=== PATIENT | female | born 1960 | race Caucasian/White ===

== ENCOUNTER → 2016-12-19 | Outpatient (REF) | payer BC | END | disposition home or self-care (01) | LOC: M LAB REF 10:58 | PROVIDERS: ATTEND Physician Assistant Medical | DX: J02.9 Acute pharyngitis, unspecified (principal) ==

== ENCOUNTER → 2017-04-22 | Outpatient (CLI) | payer BC ==
[2017-04-22 09:48] LABS: BASO % 0.5 % (0.0-1.0); EOS # 0.1 K/mm3 (0.0-0.50); EOS % 1.3 % (0.0-3.0); LARGE UNSTAINED CELL # 0.1 K/mm3 (0.0-0.4); LARGE UNSTAINED CELL % 1.4 % (0.0-4.0); LYMPH # 1.8 K/mm3 (1.5-4.5); LYMPH % 29.3 % (24.0-44.0); MEAN CORPUSCULAR HEMOGLOBIN 29.5 pg (27.0-33.0); MEAN CORPUSCULAR HGB CONC 32.4 g/dl (32.0-36.5); MEAN CORPUSCULAR VOLUME 90.9 fl (80.0-96.0); MONO # 0.3 K/mm3 (0.0-0.8); MONO % 4.8 % (0.0-5.0); NEUTROPHILS # 3.9 K/mm3 (1.8-7.7); NEUTROPHILS % 62.7 % (36.0-66.0); PLATELET COUNT, AUTOMATED 256 k/mm3 (150-450); RED CELL DISTRIBUTION WIDTH 12.9 % (11.5-14.5); WHITE BLOOD COUNT 6.2 K/mm3 (4.0-10.0)
[2017-04-22 10:33] LABS: ALBUMIN 4.2 GM/DL (3.2-5.2); ALKALINE PHOSPHATASE 95 U/L (45-117); ALT/SGPT 35 U/L (12-78); ANION GAP 7 MEQ/L (8-16); AST/SGOT 20 U/L (15-37); BILIRUBIN,TOTAL 0.3 MG/DL (0.2-1.0); BLOOD UREA NITROGEN 17 MG/DL (7-18); CALCIUM LEVEL 9.9 MG/DL (8.5-10.1); CARBON DIOXIDE LEVEL 29 MEQ/L (21-32); CHLORIDE LEVEL 107 MEQ/L (98-107); CHOLESTEROL LEVEL 252 MG/DL (<200); CREATININE FOR GFR 0.69 MG/DL (0.55-1.02); GLOMERULAR FILTRATION RATE > 60.0 (>51); GLUCOSE, FASTING 92 MG/DL (70-105); POTASSIUM SERUM 4.7 MEQ/L (3.5-5.1); SODIUM LEVEL 143 MEQ/L (136-145); TOTAL PROTEIN 7.2 GM/DL (6.4-8.2); TRIGLYCERIDES LEVEL 104 MG/DL (<150)
== END ==
LOC: M LAB 08:47
PROVIDERS: ATTEND Physician Assistant Medical
DX: E78.2 Mixed hyperlipidemia (principal); E66.09 Other obesity due to excess calories; G43.909 Migraine, unspecified, not intractable, without status migrainosus

== ENCOUNTER → 2017-10-01 | Outpatient (CLI) | payer BC ==
--- NOTE | 2017-10-01 16:13 | REPMRS ---
Patient History The patient states she had a clinical breast exam in 09/2017. Patient is postmenopausal and had first child at age 37. Family history of breast cancer in maternal aunt at age 50 or over and endometrial cancer in maternal cousin under age 50. Took hormonal contraceptives for 20 years. Digital Woman Screen Mammo: October 01, 2017 - Exam #: [id number] Bilateral CC and MLO view(s) were taken. Technologist: Giselle Fitch Technologist Prior study comparison: April 20, 2016, right breast digital mammo diagnostic unilateral, performed at [facility]. July 20, 2015, bilateral digital mammo screening bilat, performed at [facility]. FINDINGS: There are scattered fibroglandular densities. There is a fairly symmetric fibroglandular pattern in both breasts. There has been no interval development of masses, areas of architectural distortion or clusters of microcalcifications typical of malignancy. ASSESSMENT: BI-RADS/ACR category 2 mammogram. Benign finding(s). Recommendation Routine screening mammogram of both breasts in 1 year (for women over age 40). This mammogram was interpreted with the aid of an FDA-approved computer-aided dectection system. Electronically Signed By: Bhupinder Turner MD 10/01/17 2295
== END ==
LOC: M WHC 14:52
PROVIDERS: ATTEND Nurse Practitioner Family
DX: Z12.31 Encounter for screening mammogram for malignant neoplasm of breast (principal); Z78.0 Asymptomatic menopausal state; Z85.3 Personal history of malignant neoplasm of breast; Z79.899 Other long term (current) drug therapy; Z85.42 Personal history of malignant neoplasm of other parts of uterus

== ENCOUNTER → 2018-08-12 | Outpatient (REF) | payer BC | LOC: M LAB REF 12:29 | DX: N30.01 Acute cystitis with hematuria (principal) | CPT/HCPCS: 87088 ==

== ENCOUNTER → 2018-08-31 | Outpatient (REF) | payer BC | LOC: M LAB REF 10:39 | DX: N39.0 Urinary tract infection, site not specified (principal) | CPT/HCPCS: 87186 ==

== ENCOUNTER → 2018-10-02 | Outpatient (CLI) | payer BC | LOC: M WHC 15:04 | DX: Z12.31 Encounter for screening mammogram for malignant neoplasm of breast (principal); Z79.899 Other long term (current) drug therapy; Z85.3 Personal history of malignant neoplasm of breast | CPT/HCPCS: 77067 ==

== ENCOUNTER → 2019-04-21 | Outpatient (REF) | payer BC | LOC: M LAB REF 19:24 | PROVIDERS: ATTEND Physician Assistant Medical | DX: N39.0 Urinary tract infection, site not specified (principal) ==

== ENCOUNTER → 2019-05-26 | Outpatient (REF) | payer BC ==
[2019-05-26 19:01] LABS: APPEARANCE, URINE CLEAR (CLEAR); BACTERIA, URINE AUTO 2+ (NEGATIVE); BILIRUBIN, URINE AUTO NEGATIVE (NEGATIVE); BLOOD, URINE BLOOD NEGATIVE (NEGATIVE); COLOR, URINE STRAW (YELLOW); GLUCOSE, URINE (UA) AUTO NEGATIVE (NEGATIVE); KETONE, URINE AUTO NEGATIVE (NEGATIVE); LEUKOCYTE ESTERASE, URINE AUTO NEGATIVE (NEGATIVE); NITRITE, URINE AUTO NEGATIVE (NEGATIVE); PROTEIN, URINE AUTO NEGATIVE (NEGATIVE); RBC, URINE AUTO 0 /HPF (0-3); SPECIFIC GRAVITY URINE AUTO 1.003 (1.002-1.035); SQUAMOUS EPITHELIAL CELL UR AU 0 /HPF (0-6); UROBILINOGEN, URINE AUTO 0.2 mg/dL (0.0-2.0); WBC, URINE AUTO 0 /HPF (0-3)
== END ==
LOC: M SMT 17:37
PROVIDERS: ATTEND Nurse Practitioner Women's Health
DX: Z87.440 Personal history of urinary (tract) infections (principal)

== ENCOUNTER → 2019-05-28 | Outpatient (CLI) | payer BC ==
--- NOTE | 2019-05-29 00:28 | REP ---
Clinical: History of urinary tract infection. Technique: Real time jordan scale and color evaluation using curved array transducer. Findings: Right kidney is normal in reniform shape and measures 11.3 x 5.6 x 5.0 cm with mild hydronephrosis without nephrolithiasis, cystic or renal mass lesion. Left kidney is normal in reniform shape and measures 11.2 x 4.2 x 5.7 cm without hydronephrosis, nephrolithiasis, cystic or renal mass lesion. Bladder is normal in appearance without wall thickening or mass lesion. Bilateral ureteral jets are identified. Prevoid bladder equals 690 ml. Postvoid bladder measures 77 ml. Postvoid residual equals 11%. Impression: Mild persistent right hydronephrosis. Electronically Signed by Cornelius Murrieta MD 05/29/2019 12:19 A
== END ==
LOC: M RAD 11:16
PROVIDERS: ATTEND Nurse Practitioner Women's Health
DX: N13.30 Unspecified hydronephrosis (principal); Z87.440 Personal history of urinary (tract) infections

== ENCOUNTER → 2019-06-03 | Outpatient (CLI) | payer BC ==
[2019-06-03 12:54] LABS: BLOOD UREA NITROGEN 13 MG/DL (7-18); CALCIUM LEVEL 9.5 MG/DL (8.5-10.1); CARBON DIOXIDE LEVEL 28 MEQ/L (21-32); CHLORIDE LEVEL 108 MEQ/L (98-107); CREATININE FOR GFR 0.86 MG/DL (0.55-1.30); GLOMERULAR FILTRATION RATE > 60.0 (>51); GLUCOSE, FASTING 94 MG/DL (70-100); POTASSIUM SERUM 4.4 MEQ/L (3.5-5.1); SODIUM LEVEL 142 MEQ/L (136-145)
== END ==
LOC: M LAB 10:52
PROVIDERS: ATTEND Nurse Practitioner Women's Health
DX: N13.30 Unspecified hydronephrosis (principal)

== ENCOUNTER → 2019-06-08 | Outpatient (REF) | payer BC | LOC: M SMT 12:18 | PROVIDERS: ATTEND Nurse Practitioner Women's Health | DX: N39.0 Urinary tract infection, site not specified (principal) ==

== ENCOUNTER → 2019-08-11 | Outpatient (REF) | payer BC ==
[2019-08-11 17:41] LABS: APPEARANCE, URINE HAZY (CLEAR); BACTERIA, URINE AUTO 2+ (NEGATIVE); BILIRUBIN, URINE AUTO NEGATIVE (NEGATIVE); BLOOD, URINE BLOOD NEGATIVE (NEGATIVE); COLOR, URINE YELLOW (YELLOW); GLUCOSE, URINE (UA) AUTO NEGATIVE (NEGATIVE); KETONE, URINE AUTO NEGATIVE (NEGATIVE); LEUKOCYTE ESTERASE, URINE AUTO 2+ (NEGATIVE); MUCUS, URINE SMALL (NEGATIVE); NITRITE, URINE AUTO NEGATIVE (NEGATIVE); PROTEIN, URINE AUTO NEGATIVE (NEGATIVE); RBC, URINE AUTO 1 /HPF (0-3); SQUAMOUS EPITHELIAL CELL UR AU 10 /HPF (0-6); UROBILINOGEN, URINE AUTO 0.2 mg/dL (0.0-2.0); WBC, URINE AUTO 29 /HPF (0-3)
== END ==
LOC: M SMT 16:38
PROVIDERS: ATTEND Urology
DX: R30.0 Dysuria (principal)

== ENCOUNTER → 2019-10-01 | Outpatient (CLI) | payer BC ==
--- NOTE | 2019-10-01 17:01 | REPMRS ---
Patient History The patient states she had a clinical breast exam in 09/2019. Patient is postmenopausal and had first child at age 37. Family history of endometrial cancer under age 50 in maternal cousin, breast cancer at age 50 or over in maternal aunt. Took hormonal contraceptives for 20 years. Taking estrogen for 4 years. Digital Woman Screen Mammo: October 01, 2019 - Exam #: [id number] Bilateral CC and MLO view(s) were taken. Technologist: Carie Marshall, Technologist Prior study comparison: October 02, 2018, bilateral digital woman screen mammo performed at [facility]. October 01, 2017, digital woman screen mammo performed at [facility]. April 20, 2016, right breast digital mammo diagnostic unilateral, performed at [facility]. July 20, 2015, bilateral digital mammo screening bilat, performed at [facility]. FINDINGS: There are scattered fibroglandular densities. There has been no change in the appearance of the mammogram from the prior studies. There is a mild amount of scattered fibroglandular density which is fairly symmetric. There is no interval development of dominant mass, architectural distortion, or grouped microcalcification suggestive of malignancy. 3-D tomosynthesis shows no additional findings. Assessment: BI-RADS/ACR category 1 mammogram. Negative Mammogram. Recommendation Routine screening mammogram of both breasts in 1 year (for women over age 40). This patient's Lifetime Breast Cancer Risk is estimated at 15.1 %. This mammogram was interpreted with the aid of an FDA-approved computer-aided dectection system. Electronically Signed By: Elijah Murillo MD 10/01/19 [id number]
== END ==
LOC: M WHC 15:11
PROVIDERS: ATTEND Nurse Practitioner Family
DX: Z12.31 Encounter for screening mammogram for malignant neoplasm of breast (principal)

== ENCOUNTER → 2020-04-05 | Outpatient (REF) | payer BC ==
[2020-04-05 13:41] LABS: APPEARANCE, URINE HAZY (CLEAR); BACTERIA, URINE AUTO NEGATIVE (NEGATIVE); BILIRUBIN, URINE AUTO NEGATIVE (NEGATIVE); BLOOD, URINE BLOOD NEGATIVE (NEGATIVE); COLOR, URINE YELLOW (YELLOW); GLUCOSE, URINE (UA) AUTO NEGATIVE (NEGATIVE); KETONE, URINE AUTO NEGATIVE (NEGATIVE); LEUKOCYTE ESTERASE, URINE AUTO NEGATIVE (NEGATIVE); MUCUS, URINE SMALL (NEGATIVE); NITRITE, URINE AUTO NEGATIVE (NEGATIVE); PROTEIN, URINE AUTO NEGATIVE (NEGATIVE); RBC, URINE AUTO 0 /HPF (0-3); SPECIFIC GRAVITY URINE AUTO 1.013 (1.002-1.035); SQUAMOUS EPITHELIAL CELL UR AU 2 /HPF (0-6); UROBILINOGEN, URINE AUTO 0.2 mg/dL (0.0-2.0); WBC, URINE AUTO 1 /HPF (0-3)
== END ==
LOC: M SMT 13:12
PROVIDERS: ATTEND Urology
DX: N39.0 Urinary tract infection, site not specified (principal)

== ENCOUNTER → 2020-06-22 | Outpatient (CLI) | payer BC ==
[~2020-06-22] MED LIST: ECOT81TA5 PO; PERC5TAB12 PO
--- NOTE | 2020-08-09 10:01 | REP ---
MRI LEFT KNEE HISTORY: Pain. FINDINGS: There is a somewhat complex tear of the posterior horn of the medial meniscus. The lateral meniscus is intact. The cruciate and collateral ligaments are intact. The extensor mechanism is intact. There is moderate chondromalacia of the lateral patella facet with some minor subchondral marrow edema. There is moderately severe chondromalacia of the medial femoral condyle with moderate chondromalacia of the medial tibial plateau. There is subchondral marrow edema in the medial femoral condyle. There is a more focal cartilaginous defect along the weightbearing surface of the medial femoral condyle extending down to the bone, having a diameter of about 3 mm. There is mild subchondral marrow edema in the medial tibial plateau. There is mild diffuse chondromalacia of the lateral femoral condyle and tibial plateau. There is a moderate joint effusion with fluid extending inferiorly along the posterior tibiofibular articulation. IMPRESSION: Complex tear posterior horn medial meniscus. Moderate chondromalacia lateral patella facet. Moderately severe chondromalacia medial femoral condyle with a focal 3 mm cartilaginous defect extending down to the bone with moderate underlying subchondral marrow edema. There is also moderate chondromalacia of the medial tibial plateau with mild subchondral marrow edema. There is mild chondromalacia throughout the lateral joint compartment. There is a moderate joint effusion. MTDD
--- NOTE | 2020-08-09 10:02 | REP ---
MRI RIGHT KNEE HISTORY: Knee pain. TECHNIQUE: Multiple sequences obtained in the axial, coronal, and sagittal planes. FINDINGS: There is a complex tear of the posterior horn of the medial meniscus. The lateral meniscus appears intact. The cruciate and collateral ligaments are intact. The extensor mechanism is intact. There is mild chondromalacia of the patellar facet with mild subchondral marrow edema centrally. There is moderate diffuse chondromalacia of the medial femoral condyle and tibial plateau with mild subchondral marrow edema in the medial femoral condyle. There is mild marginal spurring. There is mild diffuse chondromalacia in the lateral joint compartment. There is some minimal subchondral marrow edema in the lateral tibial plateau. There is a small joint effusion. IMPRESSION: Complex tear posterior horn medial meniscus. Cruciate and collateral ligaments intact. Diffuse chondromalacia as discussed above, most significantly in the medial joint compartment along the medial femoral condyle and tibial plateau, with associated subchondral marrow edema in the medial femoral condyle. Small joint effusion. MTDD
== END ==
LOC: M RAD 16:00
PROVIDERS: ATTEND Physician Assistant
DX: M17.0 Bilateral primary osteoarthritis of knee (principal); M22.42 Chondromalacia patellae, left knee; S83.232A Complex tear of medial meniscus, current injury, left knee, initial encounter; M25.462 Effusion, left knee; S83.231A Complex tear of medial meniscus, current injury, right knee, initial encounter; M22.41 Chondromalacia patellae, right knee; X58.XXXA Exposure to other specified factors, initial encounter; Y92.9 Unspecified place or not applicable

== ENCOUNTER → 2020-08-09 | Outpatient (REF) | payer BC | LOC: M LAB REF 18:29 | PROVIDERS: ATTEND Dermatology | DX: D49.2 Neoplasm of unspecified behavior of bone, soft tissue, and skin (principal) ==

== ENCOUNTER → 2020-09-09 | Outpatient (CLI) | payer BC ==
[2020-09-09 07:59] LABS: BASO % 0.7 % (0.0-1.0); EOS # 0.1 10^3/uL (0.0-0.5); EOS % 1.9 % (0.0-3.0); HEMATOCRIT 44.4 % (36.0-47.0); HEMOGLOBIN 13.8 g/dl (12.0-15.5); LYMPH # 1.8 10^3/uL (1.5-5.0); LYMPH % 29.7 % (24.0-44.0); MEAN CORPUSCULAR HGB CONC 31.1 g/dl (32.0-36.5); MEAN CORPUSCULAR VOLUME 90.1 fl (80.0-96.0); MONO # 0.5 10^3/uL (0.0-0.8); MONO % 8.3 % (0.0-5.0); NEUTROPHILS # 3.5 10^3/uL (1.5-8.5); NEUTROPHILS % 59.2 % (36.0-66.0); PLATELET COUNT, AUTOMATED 243 10^3/uL (150-450); RED BLOOD COUNT 4.93 10^6/uL (4.00-5.40); WHITE BLOOD COUNT 5.9 10^3/uL (4.0-10.0)
[2020-09-09 08:23] LABS: ALBUMIN 3.8 GM/DL (3.2-5.2); ALT/SGPT 36 U/L (12-78); BILIRUBIN,TOTAL 0.4 MG/DL (0.2-1.0); BLOOD UREA NITROGEN 24 MG/DL (7-18); CALCIUM LEVEL 9.4 MG/DL (8.5-10.1); CARBON DIOXIDE LEVEL 27 MEQ/L (21-32); CHLORIDE LEVEL 109 MEQ/L (98-107); CHOLESTEROL LEVEL 230 MG/DL (<200); CHOLESTEROL RISK RATIO 3.593 (<5); GLOMERULAR FILTRATION RATE > 60.0 (>51); GLUCOSE, FASTING 106 MG/DL (70-100); HDL CHOLESTEROL 64 MG/DL (>40); LDL CHOLESTEROL 144 MG/DL (<100); NON-HDL-C 166 MG/DL; POTASSIUM SERUM 4.5 MEQ/L (3.5-5.1); SODIUM LEVEL 142 MEQ/L (136-145); TOTAL PROTEIN 6.7 GM/DL (6.4-8.2); TRIGLYCERIDES LEVEL 112 MG/DL (<150)
== END ==
LOC: M LAB 07:26
PROVIDERS: ATTEND Physician Assistant Medical
DX: E78.2 Mixed hyperlipidemia (principal); E66.09 Other obesity due to excess calories

== ENCOUNTER → 2020-09-13 | Outpatient (CLI) | payer BC | LOC: M PT 08:36 | PROVIDERS: ATTEND Orthopaedic Surgery | DX: Z01.818 Encounter for other preprocedural examination (principal); M17.12 Unilateral primary osteoarthritis, left knee ==

== ENCOUNTER → 2020-09-13 | Outpatient (CLI) | payer BC ==
[2020-09-13 08:32] LABS: HEMATOCRIT 44.4 % (36.0-47.0); HEMOGLOBIN 14.1 g/dl (12.0-15.5); MEAN CORPUSCULAR HEMOGLOBIN 28.7 pg (27.0-33.0); MEAN CORPUSCULAR HGB CONC 31.8 g/dl (32.0-36.5); MEAN CORPUSCULAR VOLUME 90.2 fl (80.0-96.0); PLATELET COUNT, AUTOMATED 264 10^3/uL (150-450); RED BLOOD COUNT 4.92 10^6/uL (4.00-5.40); WHITE BLOOD COUNT 5.1 10^3/uL (4.0-10.0)
[2020-09-13 08:43] LABS: INR 0.86; PROTHROMBIN TIME 11.9 SECONDS (12.5-14.3)
[2020-09-13 08:56] LABS: ALBUMIN 4.1 GM/DL (3.2-5.2); ALT/SGPT 33 U/L (12-78); BILIRUBIN,TOTAL 0.4 MG/DL (0.2-1.0); BLOOD UREA NITROGEN 14 MG/DL (7-18); CALCIUM LEVEL 10.1 MG/DL (8.5-10.1); CARBON DIOXIDE LEVEL 28 MEQ/L (21-32); CHLORIDE LEVEL 109 MEQ/L (98-107); CREATININE FOR GFR 0.76 MG/DL (0.55-1.30); GLOMERULAR FILTRATION RATE > 60.0 (>51); GLUCOSE, FASTING 105 MG/DL (70-100); POTASSIUM SERUM 4.6 MEQ/L (3.5-5.1); SODIUM LEVEL 142 MEQ/L (136-145)
[2020-09-13 09:18] LABS: ERYTHROCYTE SEDIMENTATION RATE 6 mm/hr (0-30)
--- NOTE | 2020-09-14 03:36 | REP ---
INDICATION: LEFT KNEE ARTHRITIS COMPARISON: None. TECHNIQUE: PA and lateral. FINDINGS: The mediastinum and cardiac silhouette are normal. The lung acevedo are clear and without acute consolidation, effusion, or pneumothorax. The skeletal structures are intact and normal. IMPRESSION: No acute cardiopulmonary process. <Electronically signed by Cornelius Murrieta > 09/14/20 [id number]
--- NOTE | 2020-09-15 12:31 | ECGEPIP ---
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 No prior ECG available for comparison at the time of interpretation. Electronically Signed on 09-15-2020 12:31:32 EDT by Jamie Tolbert
== END ==
LOC: M LAB 08:01
PROVIDERS: ATTEND Physician Assistant Surgical
DX: Z01.818 Encounter for other preprocedural examination (principal); M17.12 Unilateral primary osteoarthritis, left knee

== ENCOUNTER → 2020-09-16 | Outpatient (REF) | payer BC ==
[2020-09-16 18:18] LABS: HEMOGLOBIN A1c 5.7 %
== END ==
LOC: M SFHCADAM 11:27
PROVIDERS: ATTEND Physician Assistant Medical
DX: R73.01 Impaired fasting glucose (principal)

== ENCOUNTER → 2020-09-21 | Outpatient (CLI) | payer BC | LOC: M LABSMTC 12:15 | PROVIDERS: ATTEND Anesthesiology | DX: Z01.818 Encounter for other preprocedural examination (principal) | CPT/HCPCS: C9803; U0003 ==

== ENCOUNTER 2020-09-26 07:12 | Inpatient (IN) | payer BC ==
--- NOTE | 2020-09-23 06:56 | HPE ---
DATE OF ANTICIPATED ADMISSION: 09/26/2020 ATTENDING PHYSICIAN: Dr. Hutton. CHIEF COMPLAINT: Left knee pain and stiffness. HISTORY OF PRESENT ILLNESS: The patient is a pleasant 60-year-old female with progressively worsening left knee pain and stiffness. She failed to improve with conservative measures. She continues to have symptoms with weightbearing activities and activities of daily living. She consented for an elective left knee total knee arthroplasty with Dr. Hutton for her continued symptoms. Medical optimization pending with ESTELA Pitt. CURRENT MEDICATIONS: - Aleve 220 mg twice daily as needed. - daily multivitamin. - Sweta 180 mg daily. CHRONIC MEDICAL CONDITIONS: 1. Seasonal allergies. 2. Restless legs. ALLERGIES: ERYTHROMYCIN, CECLOR, AMOXICILLIN. PAST SURGICAL HISTORY: 1. Bilateral knee arthroscopies. 2. Left foot surgery. 3. sections. SOCIAL HISTORY: Patient denies tobacco and occasionally consumes alcohol. REVIEW OF SYSTEMS: Patient denies fevers, chills, nausea, vomiting, or diarrhea. She denies chest pain, shortness of breath, lightheadedness, dizziness, or headaches. She denies any recent upper respiratory or urinary tract infection symptoms. The patient does continue to have left knee pain with weightbearing activities and activities of daily living. PHYSICAL EXAMINATION: GENERAL: Well-nourished and well-developed female, in no apparent distress. She is alert, oriented, and cooperative. Her mood and affect are appropriate. VITAL SIGNS: Height 64 inches, weight 198 pounds, temperature 97.1, blood pressure 140/70, heart rate 80, respirations 20. NECK: Supple without lymphadenopathy. HEART: Regular rate and rhythm. LUNGS: Clear to auscultation bilaterally. Breathing is regular and nonlabored. ABDOMEN: Soft and nontender. Bowel sounds are present. MUSCULOSKELETAL: Left knee exhibits no gross abnormalities. There is tenderness along the medial joint line. The patient can extend the knee to about 5 degrees and flex to 100 degrees. Left lower extremity strength is 5/5. No hip irritability elicited with range of motion testing. Calf is soft and nontender without evidence of DVT. She is neurovascularly intact distally. Patient is walking with a slight limp favoring the left lower extremity. She is not using any assistive devices for ambulation. IMAGING: Chest x-ray with no acute cardiopulmonary process. Left knee x-ray notable for end-stage degenerative changes. EKG sinus rhythm with sinus arrhythmia. Nonspecific ST-T wave abnormalities. LABORATORY DATA: Comprehensive metabolic profile with fasting glucose elevated at 105, BUN 14, creatinine 0.76, GFR greater than 60, sodium 142, potassium 4.6, chloride elevated at 109, carbon dioxide 28. Anion gap decreased at 5. Calcium 10.1, AST 19, ALT 33, alkaline phosphatase elevated at 121. Total bilirubin 0.4, total protein 7.0, albumin 4.1, albumin globulin ratio 1.4. Prothrombin time 11.9. INR 0.86. Complete blood count ESR 6, WBCs 5.1, RBCs 4.92, hemoglobin 14.1, hematocrit 44.4, platelets 264,000. IMPRESSION: Left knee degenerative arthritis with x-rays notable for end-stage degenerative changes. PLAN: The patient has consented for an elective left total knee arthroplasty with Dr. Hutton for her continued symptoms. The patient will use her Bactroban and Hibiclens as directed. She will call [facility] tomorrow afternoon for a report time for her surgery on Saturday. She will be n.p.o. after midnight the night prior to surgery. She will follow her primary care recommendations on how to take her daily medications. ROSHNI
[~2020-09-26] VITALS: Ht 162.6 cm; Wt 89.4 kg
[~2020-09-26 07:12] MED LIST changes: -ECOT81TA5 PO; +LR 1,000 ML IV ONE; -PERC5TAB12 PO; +VANCOMYCIN HCL 1,000 MG, VIAL MATE ADAPTER 1 EACH in D5W 250 ML IV ONE
[2020-09-26] MEDS ORDERED: VANCOMYCIN 1000MG/20ML VIAL As Ordered ONE (07:34)
[2020-09-26] MEDS ORDERED: fentaNYL 100 MCG/2 ML INJECTION (J3010) As Ordered ONE ×3 (08:06→11:53)
[2020-09-26] MEDS ORDERED: propofoL 500 MG/50 ML VIAL As Ordered ONE (08:07)
[2020-09-26] MEDS ORDERED: propofoL 200 MG/20 ML VIAL As Ordered ONE ×2 (08:07→11:01)
[2020-09-26] MEDS ORDERED: LIDOCAINE 2% 100MG/5ML SDV (FOR ANES.) As Ordered ONE (08:07)
[2020-09-26] MEDS ORDERED: MIDAZOLAM INJ 2MG/2ML VIAL (J2250 PER 1MG) As Ordered ONE (08:30)
[2020-09-26] MEDS ORDERED: ceFAZolin 1GM VIAL (J0690 PER 500MG) As Ordered ONE (09:25)
[2020-09-26] MEDS ORDERED: BUPIVACAINE HCL 0.25% 10ML VIAL As Ordered ONE (09:26)
[2020-09-26] MEDS ORDERED: BUPIVACAINE LIPOSOME/PF 1.3% 20ML VIAL (13.3MG/ML)(EXPAREL)(C9290 PER1MG) As Ordered ONE (09:26)
[2020-09-26] MEDS ORDERED: EPINEPHrine INJ 1 MG/ML 1ML AMP As Ordered ONE (09:27)
[2020-09-26] MEDS ORDERED: TRANEXAMIC ACID 100 MG/ML 10ML VIAL As Ordered ONE (09:27)
[2020-09-26] MEDS ORDERED: fentaNYL 100 MCG/2 ML INJECTION (J3010) IV ONE (09:30)
[2020-09-26] MEDS ORDERED: MIDAZOLAM INJ 2MG/2ML VIAL (J2250 PER 1MG) IV ONE (09:30)
[2020-09-26] MEDS ORDERED: CLINDAMYCIN INJ 900MG/6ML VIAL As Ordered ONE (09:50)
[2020-09-26] MEDS ORDERED: ePHEDrine SULFATE 25 MG/5 ML(5MG/ML) SYRINGE As Ordered ONE (10:23)
[2020-09-26] MEDS ORDERED: PHENYLephrine HCL 500 MCG/5 ML (100MCG/ML) SYRINGE (J2370) As Ordered ONE (10:23)
[2020-09-26] MEDS ORDERED: oxyCODONE 5MG TAB As Ordered ONE (11:49)
[2020-09-26] MEDS: fentaNYL 100 MCG/2 ML INJECTION (J3010) IV PRN ×3 (11:55→12:05)
--- NOTE | 2020-09-26 12:11 | REP ---
INDICATION: POST OP IN PACU - PT IN PACU. COMPARISON: MRI 06/22/2020 TECHNIQUE: Two views FINDINGS: Anterior skin daljit are noted with evidence for a left total knee arthroplasty with all 3 components well aligned in relationship to each other and the solomon bone. There is some air and fluid in the knee joint and some subcutaneous air as well. IMPRESSION: Status post left total knee arthroplasty with normal orientation alignment of the 3 components in relationship to the solomon bone and each other. Immediate postoperative changes as described above. <Electronically signed by Fortino Bess > 09/26/20 [id number]
[2020-09-26] MEDS ORDERED: ONDANSETRON 4MG/2ML VIAL IV PRN ×2 (12:15→14:00)
[2020-09-26] MEDS ORDERED: oxyCODONE 5MG TAB PO PRN (12:15)
[2020-09-26] MEDS ORDERED: LR 1,000 ML IV SCH ×2 (12:15→14:00)
[2020-09-26] MEDS ORDERED: MORPHINE 2 MG/ML 1ML VIAL (J2270) IV PRN ×2 (12:15→14:00)
[2020-09-26] MEDS ORDERED: METOCLOPRAMIDE INJ 10MG/2ML VIAL (J2765 PER 1) IV PRN (12:15)
[2020-09-26 12:45] VITALS: BP 158/88
[2020-09-26 13:15] VITALS: BP 154/89
[2020-09-26] MEDS ORDERED: ACETAMINOPHEN TAB 650MG DOSE (2X325MG) PO PRN (14:00)
[2020-09-26] MEDS ORDERED: MORPHINE 4 MG/ML 1ML VIAL/SYRINGE (J2270) IV PRN (14:00)
[2020-09-26] MEDS: PERCOCET 5MG/325MG TAB PO PRN ×2 (14:14→20:47)
[2020-09-26 14:15] VITALS: BP 150/89
[2020-09-26] MEDS ORDERED: dexameTHASONE 10MG/1ML VIAL PRES.FREE (J1100 PER 1MG) ONE (15:18)
[2020-09-26] MEDS ORDERED: EPINEPHrine INJ 1 MG/ML 1ML AMP ONE (15:18)
[2020-09-26] MEDS ORDERED: ROPIvacaine 0.5% 30ML INJECTION (J2795 PER 1MG) ONE (15:18)
[2020-09-26 16:15] VITALS: BP 169/105
[2020-09-26 17:15] VITALS: BP 156/82
[2020-09-26] MEDS: ASPIRIN 81 MG ENTERIC TAB PO SCH (20:46)
[2020-09-26] MEDS: VANCOMYCIN HCL 1,000 MG, VIAL MATE ADAPTER 1 EACH in D5W 250 ML IV SCH (20:47)
[2020-09-26 22:00] VITALS: BP 153/79
[2020-09-27] MEDS ORDERED: diphenhydrAMINE 25MG CAP PO ONE (00:30)
[2020-09-27] MEDS: PERCOCET 5MG/325MG TAB PO PRN ×2 (02:57→09:53)
[2020-09-27 06:42] VITALS: BP 117/68
[2020-09-27] MEDS ORDERED: PERC5TAB12 PO (06:53)
[2020-09-27] MEDS ORDERED: ECOT81TA5 PO ×2 (06:53→06:59)
--- NOTE | 2020-09-27 07:10 | RO ---
DATE OF OPERATION: 09/26/2020 PREOPERATIVE DIAGNOSIS: Left knee degenerative arthritis. POSTOPERATIVE DIAGNOSIS: Left knee degenerative arthritis. PROCEDURE: Left total knee arthroplasty using a size 5 cruciate retaining ATTUNE femoral component with a size 4 tibial tray and a 6 mm rotating platform polyethylene insert, 32 mm polyethylene button, all the components were cemented. SURGEON: Chirag Hutton MD CANDLE POURER: Soledad Mason ANESTHESIA: Spinal, left femoral nerve block. COMPLICATIONS: None. SPECIMEN: Joint surface. OPERATIVE PROCEDURE: Antibiotics were given intravenously preoperatively. Successful left femoral nerve harish and then spinal anesthetic was induced. Tourniquet placed to the left upper thigh, not inflated. The left lower extremity was carefully prepped and draped in the usual sterile fashion. The leg was elevated. After appropriate time-out, the tourniquet was inflated to 250 mmHg for 54 minutes. A longitudinal incision was made for a median parapatellar approach to the knee. Bovie cautery was used to coagulate crossing vessels down to the knee joint capsule which was divided along the skin incision. We subperiosteally dissected the proximal, medial and lateral plateaus and then everted the patella and flexed the knee. ACL was dbrided and then the drill was placed on the center of the femoral canal, followed intramedullary victorino and the distal femoral cutting jig, set at 9 mm resection level at 5 degree valgus, a left knee block was pinned into position. Distal femoral cut performed. AP size and jig measured for a size 5 prosthesis, 3 degrees of external rotation dialed in. The pins placed and the four-in-one block applied. Anterior/posterior chamfer cuts were then performed taking great care to protect the surrounding soft tissues. Sulcus osteotomy was then performed by placing the jig first and then doing the osteotomy. I then exposed the proximal tibia and used an extra medullary victorino for the proximal tibial cut estimating being parallel to the mechanical axis of the tibia, referencing off the medial tibial condyle at 4 mm resection level. The block was pinned into position and secondary check with the extramedullary victorino confirmed we appeared to be parallel to the mechanical axis. A proximal tibial osteotomy was thus performed. The lamina bell hole digger was then laterally and we performed a completion medial meniscectomy. Debridement of posteromedial osteophytes and placed then placed the lamina bell hole digger medially and performed a completion meniscectomy and debridement of posterolateral osteophytes. The spacer block was placed; however, it was quite snug both in flexion and extension symmetrically with the 6 mm spacer. Thus I felt that we were more proximal to that needed to be removed, thus I placed the block and took an additional 4 mm. At this point, the flexion and extension trial block placed at 6 mm depth and she had excellent stability, symmetrically with the varus/valgus stress test in both flexion and extension. I then exposed the proximal tibia, size 4 tibial tray, which was then pinned in position followed by a reamer and a broach. The trial polyethylene was placed. The trial femoral component fit anatomically. We brought the knee into extension, everted the patella and performed a patellar osteotomy size for a 32 sized patellar component. Level was drilled. Trial placed. The patellofemoral tracking was anatomic. We drilled the lug holes for the femoral component and then removed all the trials and then placed Exparel on the subperiosteal tissues around the distal femur and the proximal tibia. As I was doing this, Soledad Mason, my intellectual property legal assistant, mixed the cement on the back table, as I prepared the bony surfaces for cementing with a copious amount of pulsatile lavage irrigant solution. Ms. Mason was also critically to the success with this difficult procedure by helping with appropriate soft tissue retraction, help to flex and extend the knee, help to prepare the patient, help to close the wound, help to mix the cement amongst many other tasks to allow me to perform the operation smoothly, efficiently and safely. Once all the bony surfaces were thoroughly dry, we cemented the tibial tray, removed excess cement, placed the polyethylene and then cemented the femoral component, removed excess cement, brought the knee into extension and then cemented the patellar button and removed excess cement and held it with a clamp with the knee in full extension until the cement hardened. As we were awaiting the cement to harden, we copiously pulsatile lavage irrigated out the knee joint. We did check the femoral canal and there was some cement protruding, which I removed. The tranexamic acid was then placed into the wound and then we began closing the apex of the arthrotomy with two #1 PDS sutures, the medial parapatellar area was closed with #1 PDS suture, then a #1 running STRATAFIX suture was used to close the capsule, double armed. The tourniquet was then released at this point. We copiously irrigated again, closed the deep subdermal tissues with interrupted 2-0 PDS sutures and the skin was closed with daljit, covered by an Optifoam and dry sterile bulky dressing. She was then transferred to the recovery room in stable condition. There were no intraoperative complications. ROSHNI
[2020-09-27 07:35] LABS: HEMATOCRIT 37.6 % (36.0-47.0); HEMOGLOBIN 11.8 g/dl (12.0-15.5); MEAN CORPUSCULAR HEMOGLOBIN 27.9 pg (27.0-33.0); MEAN CORPUSCULAR HGB CONC 31.4 g/dl (32.0-36.5); MEAN CORPUSCULAR VOLUME 88.9 fl (80.0-96.0); PLATELET COUNT, AUTOMATED 271 10^3/uL (150-450); RED BLOOD COUNT 4.23 10^6/uL (4.00-5.40); WHITE BLOOD COUNT 8.6 10^3/uL (4.0-10.0)
[2020-09-27 08:08] LABS: ALBUMIN 3.4 GM/DL (3.2-5.2); ALT/SGPT 31 U/L (12-78); BILIRUBIN,TOTAL 0.3 MG/DL (0.2-1.0); BLOOD UREA NITROGEN 10 MG/DL (7-18); CALCIUM LEVEL 9.2 MG/DL (8.5-10.1); CARBON DIOXIDE LEVEL 26 MEQ/L (21-32); CHLORIDE LEVEL 109 MEQ/L (98-107); CREATININE FOR GFR 0.59 MG/DL (0.55-1.30); GLOMERULAR FILTRATION RATE > 60.0 (>51); GLUCOSE, FASTING 128 MG/DL (70-100); POTASSIUM SERUM 3.9 MEQ/L (3.5-5.1); SODIUM LEVEL 140 MEQ/L (136-145); TOTAL PROTEIN 6.4 GM/DL (6.4-8.2)
[2020-09-27] MEDS ORDERED: MIRALAX *UNIT DOSE* 17GM PACKET PO SCH (09:00)
[2020-09-27] MEDS ORDERED: MOM 30ML SUSPENSION UDC PO SCH (09:00)
[2020-09-27] MEDS ORDERED: diphenhydrAMINE 50MG/ML VIAL (J1200) IV ONE (09:30)
[2020-09-27] MEDS: VANCOMYCIN HCL 1,000 MG, VIAL MATE ADAPTER 1 EACH in D5W 250 ML IV SCH (09:39)
[2020-09-27] MEDS: ASPIRIN 81 MG ENTERIC TAB PO SCH (09:39)
[2020-09-27 10:00] VITALS: BP 152/79
--- NOTE | 2020-09-27 10:26 | HPEPDOC ---
General Date of Admission Sep 26, 2020 at 07:12 Date of Service: Sep 26, 2020 Chief Complaint The patient is a 60-year-old female admitted with a reason for visit of Arthritis Left Knee. History of Present Illness Consultation Report: Consultation requested by Dr Chirag Saldivar HPI: The patient is [id number] female with no PMH of OA, RLS, Seasonal allergies was admitted for elective left total knee replacement for progressively worsening left knee pain and stiffness which failed to improve with conservative measures. At present she complains of sharp aching pain 4/10 at the surgical site of left knee. Says the numbness is wearing of. Denies any nausea or vomiting, Denies any chest pain or sob. Home Medications Scheduled Aspirin (Ecotrin) 81 Mg Tablet.dr, 1 TAB PO BID for pain Scheduled PRN Oxycodone HCl/Acetaminophen (Percocet 5-325 mg Tablet) 1 Each Tablet, 1-2 TAB PO Q4H PRN for PAIN Allergies Coded Allergies: amoxicillin (Verified Allergy, Intermediate, hives, 09/20/20) cefaclor (Verified Allergy, Intermediate, hives, 09/20/20) clavulanic acid (Verified Allergy, Intermediate, hives, 09/20/20) erythromycin base (Verified Allergy, Intermediate, hives, 09/20/20) hydrocodone (Verified Adverse Reaction, Mild, nausea, 09/20/20) Past Medical History Medical History Seasonal allergies. Restless legs. CERVICALGIA ENDOMETRIOSIS OBESITY MIGRAINE HEADACHE HYPERLIPIDEMIA CYSTO 06/22/2019 Surgical History Bilateral knee arthroscopies. Meniscal repair on right Left foot surgery. sections. L FOOT, BUNIONECTOMY 2009 LAPAROSCOPIES X 3, ENDOMETRIOSIS Family History FATHER: 66 YRS, CAD S/P SC, DM2, HTN MOTHER: ALIVE 78 YRS, ARTHRITIS, DJD SIBLINGS: SISTER - MULITPLE CVA, UNKNOWN CAUSE SISTER - HTN, ALCHOLISM, DEPRESSION, SUICIDE ATTEMPT(2017) AT 53, HYPOXIA RELATED ISSUES BROTHER -(D) 56 SUICIDE, ALCOHOLISM, DM2, HTN PATERNAL GRAND FATHER: THYROID CANCER PATERNAL GRAND MOTHER: HTN,SC STROKE MATERNAL AUNT: , MATERNAL AUNT AT AGE 60'S WITH BREAST CANCER IN BOTH BREASTS WITH DBL MASTECTOMIES Social History * Smoker: non-smoker A-FIB/CHADSVASC A-FIB History Current/History of A-Fib/PAF?: No Review of Systems Constitutional: Denies: Chills, Fever, Night Sweats Eyes: Denies: Pain, Vision change ENT: Denies: Head Aches, Ear Pain, Dysphagia Skin: Denies: Rash, Lesions, Breakdown Pulmonary: Denies: Dyspnea, Cough Cardiovascular: Denies: Chest Pain, Palpitations, Orthopnea, Paroxysmal Noc. Dyspnea, Lt Headedness Gastrointestinal: Denies: Nausea, Vomiting, Abdominal Pain, Diarrhea Genitourinary: Denies: Dysuria, Frequency, Incontinence, Retention Musculoskeletal: Reports: Joint Pain, Spasms; Denies: Neck Pain, Back Pain, Muscle Pain Neurological: Denies: Weakness, Numbness, Change in speech, Confusion Physical Examination General Exam: Positive: Alert, Cooperative, No Acute Distress Eye Exam: Positive: PERRLA, Conjunctiva & lids normal, EOMI; Negative: Sclera icteric ENT Exam: Positive: Atraumatic, Mucous membr. moist/pink, Pharynx Normal Neck Exam: Positive: Supple; Negative: JVD, thyromegaly Chest Exam: Positive: Clear to auscultation, Normal air movement Heart Exam: Positive: Rate Normal, Regular Rhythm, Normal S1, Normal S2; Negative: Murmurs, Rubs Abdomen Exam: Positive: Normal bowel sounds, Soft; Negative: Tenderness, Hepatospenomegaly Extremity Exam: Positive: Normal pulses; Negative: Clubbing, Cyanosis, Edema Skin Exam: Positive: Nl turgor and temperature; Negative: Breakdown, Lesion Vital Signs Vital Signs Date Time Temp Pulse Resp B/P (MAP) Pulse Ox O2 Delivery O2 Flow Rate FiO2 09/26/20 12:45 97.4 70 16 158/88 (111) 94 Room Air 09/26/20 12:05 2.0 Assessment/Plan The patient is [id number] female with no PMH of OA, RLS, obesity, migraine, Seasonal allergies was admitted for elective left total knee replacement for progressively worsening left knee pain and stiffness which failed to improve with conservative measures. left total knee athroplasty s/p Left TKR pain control and DVT prophylaxis as epr ortho RLS not on any meds. Allergies Cetrizine prn. Plan / VTE VTE Prophylaxis Ordered?: Yes EDWARD GILLIAM MD Sep 26, 2020 13:43
--- NOTE | 2020-09-29 14:13 | DS ---
DATE OF ADMISSION: 09/26/2020 DATE OF DISCHARGE: 09/27/2020 ATTENDING: Dr. Chirag Hutton ADMITTING DIAGNOSIS: Osteoarthritis, left knee. OTHER DIAGNOSES: 1. Seasonal allergies. 2. Restless leg syndrome. DISCHARGE DIAGNOSIS: Osteoarthritis, left knee, status post left total knee arthroplasty. OPERATION PERFORMED: Left total knee arthroplasty. HISTORY: A 60-year-old female patient with progressively worsening left knee pain and stiffness. She failed to improve with conservative management. She was admitted for elective knee replacement on the left side. HOSPITAL COURSE: Patient was admitted on the day of surgery and underwent a left total knee arthroplasty, which was uneventful. She did well in the postoperative period, and her hospital course was without complications. She will use thromboembolic deterrent (LUCIANO) stockings and aspirin 81 mg twice a day per the protocol for deep venous thrombosis (DVT) prophylaxis. She will resume her preoperative medications and diet. She was given instructions to include, but not limited to, wound monitoring and activity limitations. She will followup in our office in 10-14 days for a surgical followup. Please refer to the medical record for further details. [facility]la [facility]
== END 2020-09-27 15:15 | disposition home or self-care (01) | DRG 302 ==
LOC: M OR 07:12 → M MS5PR 12:30
PROVIDERS: ADMIT Orthopaedic Surgery; ATTEND Orthopaedic Surgery
PROC: 0SRD0J9 Replacement of Left Knee Joint with Synthetic Substitute, Cemented, Open Approach (ICD-10-PCS; principal; 2020-09-26 09:45)
DX: M17.12 Unilateral primary osteoarthritis, left knee (principal); G25.81 Restless legs syndrome; J30.2 Other seasonal allergic rhinitis; M23.221 Derangement of posterior horn of medial meniscus due to old tear or injury, right knee; M23.222 Derangement of posterior horn of medial meniscus due to old tear or injury, left knee; Z79.899 Other long term (current) drug therapy; Z88.0 Allergy status to penicillin; Z88.1 Allergy status to other antibiotic agents; Z88.8 Allergy status to other drugs, medicaments and biological substances

== ENCOUNTER → 2020-10-17 | Outpatient (RCR) | payer BC ==
[~2020-10-17] MED LIST changes: +ECOT81TA5 PO; -LR 1,000 ML IV ONE; +PERC5TAB12 PO; -VANCOMYCIN HCL 1,000 MG, VIAL MATE ADAPTER 1 EACH in D5W 250 ML IV ONE
== END ==
LOC: M PT 10-03 09:14
PROVIDERS: ATTEND Orthopaedic Surgery
DX: M17.12 Unilateral primary osteoarthritis, left knee (principal)

== ENCOUNTER → 2020-11-17 | Outpatient (RCR) | payer BC | LOC: M PT 10-20 09:48 | PROVIDERS: ATTEND Orthopaedic Surgery | DX: Z51.89 Encounter for other specified aftercare (principal); M17.12 Unilateral primary osteoarthritis, left knee ==

== ENCOUNTER 2020-12-02 12:58 | Outpatient (RCR) | payer BC | END 2020-12-18 | LOC: M PT 12:58 | PROVIDERS: ATTEND Orthopaedic Surgery | DX: Z47.89 Encounter for other orthopedic aftercare (principal); Z96.652 Presence of left artificial knee joint ==

== ENCOUNTER → 2020-12-02 | Outpatient (CLI) | payer BC ==
--- NOTE | 2020-12-02 12:05 | REPMRS ---
Patient History The patient states she had a clinical breast exam in November 2020. Patient is postmenopausal and had first child at age 37. Family history of endometrial cancer under age 50 in maternal cousin, breast cancer at age 50 or over in maternal aunt. Took hormonal contraceptives for 20 years. Took estrogen for 4 years. 3D TOMOSYNTHESIS WAS PERFORMED. The [facility] lifetime risk for breast cancer is 14.7%. Volpara breast density b. Digital Woman Screen Mammo: December 02, 2020 - Exam #: [id number] Bilateral CC and MLO view(s) were taken. Technologist: Leslie Farias, Technologist Prior study comparison: October 01, 2019, bilateral digital woman screen mammo performed at [facility]. October 02, 2018, bilateral digital woman screen mammo performed at [facility]. FINDINGS: There are scattered fibroglandular densities. There has been no change in the appearance of the mammogram from the prior studies. There is a mild amount of residual fibroglandular tissue which is fairly symmetric. There is no interval development of dominant mass, architectural distortion, or clustered microcalcification suggestive of malignancy. Assessment: BI-RADS/ACR category 1 mammogram. Negative Mammogram. Recommendation Routine screening mammogram in 1 year (for women over age 40). This mammogram was interpreted with the aid of an FDA-approved computer-aided dectection system. Electronically Signed By: Bhupinder Turner MD 12/02/20 [id number]
== END ==
LOC: M WHC 10:12
PROVIDERS: ATTEND Nurse Practitioner Family
DX: Z12.31 Encounter for screening mammogram for malignant neoplasm of breast (principal); Z92.0 Personal history of contraception

== ENCOUNTER → 2021-02-22 | Outpatient (REF) | LOC: M LABSMTC 11:34 | PROVIDERS: ATTEND Pediatrics | DX: Z11.52 Encounter for screening for COVID-19 (principal) ==

== ENCOUNTER 2021-05-19 14:03 | Emergency (ER) | payer BC ==
[~2021-05-19] VITALS: Ht 162.6 cm; Wt 90.9 kg
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
[2021-05-19] MEDS ORDERED: methocarbamoL 500 MG TAB PO ONE (15:15)
[2021-05-19] MEDS ORDERED: KETOROLAC 60MG 2ML VIAL IM ONE (15:15)
--- NOTE | 2021-05-19 15:45 | REP ---
INDICATION: pain COMPARISON: 09/26/2020 TECHNIQUE: AP, lateral, bilateral oblique and sunrise views. FINDINGS: Left knee replacement in stable satisfactory position. Associated postsurgical degenerative changes to the patella noted. No acute fracture or dislocation. No effusion. IMPRESSION: Relatively normal examination. No evidence for acute process. <Electronically signed by Cornelius Murrieta > 05/19/21 [id number]
[2021-05-19] MEDS ORDERED: METH-1164 PO (16:23)
[2021-05-19] MEDS ORDERED: KETO10TAB PO (16:23)
[2021-05-19 16:31] VITALS: BP 142/67
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
== END 2021-05-19 16:42 | disposition home or self-care (01) ==
LOC: M ED 14:03
DX: S06.0X0A Concussion without loss of consciousness, initial encounter (principal); S00.83XA Contusion of other part of head, initial encounter; S80.02XA Contusion of left knee, initial encounter; V49.59XA Passenger injured in collision with other motor vehicles in traffic accident, initial encounter; Y92.410 Unspecified street and highway as the place of occurrence of the external cause; Z88.0 Allergy status to penicillin; Z88.1 Allergy status to other antibiotic agents; Z88.5 Allergy status to narcotic agent
CPT/HCPCS: 70450; 70486; 72125; 73564; 96372; 99283; J1885

== ENCOUNTER → 2021-09-12 | Outpatient (CLI) | payer BC ==
[~2021-09-12] MED LIST changes: +KETO10TAB PO; +METH-1164 PO
[2021-09-12 09:03] LABS: BASO % 0.6 % (0.0-1.0); EOS # 0.2 10^3/uL (0.0-0.5); EOS % 3.2 % (0.0-3.0); HEMATOCRIT 43.7 % (36.0-47.0); HEMOGLOBIN 13.9 g/dl (12.0-15.5); LYMPH # 1.8 10^3/uL (1.5-5.0); LYMPH % 33.4 % (24.0-44.0); MEAN CORPUSCULAR HEMOGLOBIN 29.1 pg (27.0-33.0); MEAN CORPUSCULAR HGB CONC 31.8 g/dl (32.0-36.5); MEAN CORPUSCULAR VOLUME 91.4 fl (80.0-96.0); MONO # 0.4 10^3/uL (0.0-0.8); MONO % 7.6 % (2.0-8.0); PLATELET COUNT, AUTOMATED 269 10^3/uL (150-450); RED BLOOD COUNT 4.78 10^6/uL (4.00-5.40); WHITE BLOOD COUNT 5.4 10^3/uL (4.0-10.0)
[2021-09-12 09:32] LABS: HEMOGLOBIN A1c 5.6 %
[2021-09-12 09:41] LABS: ALBUMIN 3.9 GM/DL (3.2-5.2); ALT/SGPT 25 U/L (12-78); BILIRUBIN,TOTAL 0.2 MG/DL (0.2-1.0); BLOOD UREA NITROGEN 17 MG/DL (7-18); CALCIUM LEVEL 9.5 MG/DL (8.5-10.1); CARBON DIOXIDE LEVEL 28 MEQ/L (21-32); CHLORIDE LEVEL 112 MEQ/L (98-107); CHOLESTEROL LEVEL 235 MG/DL (<200); CHOLESTEROL RISK RATIO 3.175 (<5); CREATININE FOR GFR 0.59 MG/DL (0.55-1.30); GLOMERULAR FILTRATION RATE > 60.0 (>51); GLUCOSE, FASTING 105 MG/DL (70-100); HDL CHOLESTEROL 74 MG/DL (>40); LDL CHOLESTEROL 137 MG/DL (<100); NON-HDL-C 161 MG/DL; POTASSIUM SERUM 4.8 MEQ/L (3.5-5.1); SODIUM LEVEL 144 MEQ/L (136-145); TOTAL PROTEIN 6.5 GM/DL (6.4-8.2); TRIGLYCERIDES LEVEL 122 MG/DL (<150)
== END ==
LOC: M LAB 08:08
PROVIDERS: ATTEND Physician Assistant Medical
DX: R73.01 Impaired fasting glucose (principal); E78.2 Mixed hyperlipidemia

== ENCOUNTER 2021-09-26 14:49 | Emergency (ER) | payer BC ==
[~2021-09-26] VITALS: Ht 162.6 cm; Wt 90.0 kg
--- OUTSIDE RECORDS SUMMARY | 2021-09-26 14:54 | CCD ---
Author Author [facility] Organization [facility] Address Unknown Phone Unavailable Care Team Providers Care C.O.D. Biller Name Role Phone Potter, Chata Unavailable PROBLEMS Type Condition ICD9-CM Code MUG00-GY Code Onset Dates Condition S tatus W/U Status Risk SNOMED Code Notes Problem Mixed hyperlipidemia E78.2 Active confirmed 676705085 Problem Other obesity due to excess calories E66.09 Act marco confirmed 330993272 Problem Vasomotor symptoms due to menopause N95.1 Acti ve confirmed 380627874 Problem Grief F43.21 Active confirmed 557840201 Problem Migraine, unspecified, not intractable, without status migrainosus G43.909 Active confirmed 06675349 Problem Bilateral primary osteoarthritis of knee M17.0 Active confirmed 036720721 Problem Family history of malignant neoplasm of endometrium Z80.49 Active confirmed [id number] Problem Family history of breast cancer Z80.3 Active confi rmed 450517058 Problem Recurrent UTI N39.0 Active confirmed 369481 001 Problem UTI (urinary tract infection) N39.0 Active confirm ed 71036262 ALLERGIES Allergen (clinical drug ingredient) Drug/Non Drug Allergy do cumented on EMR Reaction Allergy Type Onset Date Status erythromycin Erythromycin(NDC Code:[address]-22) Hives Drug All ergy Active amoxicillin Amoxicillin(NDC Code:[address]-18) Hives Drug Aller gy Active CECLOR Hives Non Drug Allergy Active ENCOUNTERS from 1962 to 2021-09-19 Encounter Location Date Provider Diagnosis [id number] [place] [address] Aug, Chata Potter Annual physical exam Z00.00 ; Mixed hype rlipidemia E78.2 ; Other obesity due to excess calories E66.09 ; Migraine, unspecified, not intractable, without status migrainosus G43.909 ; Grief F43.21 and Impaired fasting glucose R73.01 IMMUNIZATIONS Vaccine Route Administration Date Status Influenza 6mo & up Fluzone Unknown Aug 27, 2013 Admin istered Influenza 6mo & up Fluzone Unknown Sep 05, 2011 Admin istered SOCIAL HISTORY Tobacco Use: Social History Observation Description Date Details (start date - stop date) Never Smoker Sex Assigned At : Social History Observation Description Sex Assigned At Unknown Education: Question Answer Notes Level of Education: Finished College [employer] Audit Question Answer Notes Total Score: 2 Interpretation: Alcohol Education Language: Question Answer Notes Languages spoken: Sami Presybeterian: Question Answer Notes Presybeterian 13 [employer] Sexual Hx: Question Answer Notes Had sex in the last 12 months (vaginal, oral, or anal)? Yes Have you ever had an STD? No with Men only Drug and Alcohol Question Answer Notes Total Score: 0 Interpretation: No problems reported Alcohol Screening: Question Answer Notes Did you have a drink containing alcohol in the past year? Ye s Points 3 Interpretation Positive How often did you have six or more drinks on one occas ion in the past year? Never (0 points) How many drinks did you have on a typica l day when you were drinking in the past year? 1 or 2 (0 points) How often did you have a drink containing alcohol in t he past year? Two to three times per week (3 points) BMI Care Goal Follow-Up Question Answer Notes Above Normal BMI Follow-Up Dietary management educatio n, guidance, and counseling Tobacco Use: Question Answer Notes Are you a: never smoker never smoker REASON FOR REFERRAL No Information VITAL SIGNS Weight 207 lbs Aug, Height 63.25 in Aug, BMI 36.38 kg/m2 Aug, Heart Rate 77 /min Aug, Respiratory Rate 18 /min Aug, Temperature 97.4 degrees Fahrenheit Aug, Oximetry 98 Aug, Blood pressure systolic 142 mm Hg Aug, Blood pressure diastolic 84 mm Hg Aug, MEDICATIONS Medication SIG (Take, Route, Frequency, Duration) Notes Start Da te End Date Status Naproxen 500 MG 1 tablet as needed Orally every 12 hrs for 30 da ys 12 May, 2014 Active Loratadine 10 MG 1 tablet Orally Once a day Active May Have - D- mannose daily Active Multivitamins 1 Orally daily Active Vitamin D 1000 UNIT 1 tablet Orally Once a day Active Valtrex 500 MG 1 tab(s) Orally bid as needed for 3 days Feb, Active PROCEDURES No Information RESULTS Component Value Reference Range CBC with Differential Reviewed date:09/14/2021 17:11:35 Interpretation: Performing Lab:[facility] [address] [address] , ,[place] [address] WHITE BLOOD COUNT 5.4 4.0-10.0 RED BLOOD COUNT 4.78 4.00-5.40 HEMOGLOBIN 13.9 12.0-15.5 HEMATOCRIT 43.7 36.0-47.0 MEAN CORPUSCULAR VOLUME 91.4 80.0-96.0 MEAN CORPUSCULAR HEMOGLOBIN 29.1 27.0-33.0 MEAN CORPUSCULAR HGB CONC 31.8 32.0-36.5 RED CELL DISTRIBUTION WIDTH 13.2 11.5-14.5 PLATELET COUNT, AUTOMATED 269 150-450 NEUTROPHILS % 55.0 36.0-66.0 LYMPH % 33.4 24.0-44.0 MONO % 7.6 2.0-8.0 EOS % 3.2 0.0-3.0 BASO % 0.6 0.0-1.0 NEUTROPHILS # 3.0 1.5-8.5 LYMPH # 1.8 1.5-5.0 MONO # 0.4 0.0-0.8 EOS # 0.2 0.0-0.5 BASO # 0.0 0.0-0.2 Comprehensive Metabolic Profile (CMP) Reviewed date:09/14/2021 17:11:35 Interpretation: Performing Lab:[facility] [address] [address] , ,[place] [address] GLUCOSE, FASTING 105 70-100 BLOOD UREA NITROGEN 17 7-18 CREATININE FOR GFR 0.59 0.55-1.30 GLOMERULAR FILTRATION RATE > 60.0 >51 SODIUM LEVEL 144 136-145 POTASSIUM SERUM 4.8 3.5-5.1 CHLORIDE LEVEL 112 98-107 CARBON DIOXIDE LEVEL 28 21-32 CALCIUM LEVEL 9.5 8.5-10.1 AST/SGOT 13 7-37 ALT/SGPT 25 12-78 ALKALINE PHOSPHATASE 129 45-117 BILIRUBIN,TOTAL 0.2 0.2-1.0 TOTAL PROTEIN 6.5 6.4-8.2 ALBUMIN 3.9 3.2-5.2 ALBUMIN/GLOBULIN RATIO 1.5 1.2-2.2 HEMOGLOBIN A1c Reviewed date:09/14/2021 17:11:35 Interpretation: Performing Lab:[facility] [address] [address] , ,[place] [address] HEMOGLOBIN A1c 5.6 ESTIMATED AVERAGE GLUCOSE 114 60-110 LIPID PANEL (CARDIAC RISK) Reviewed date:09/14/2021 17:11:35 Interpretation: Performing Lab:[facility] [address] [address] , ,[place] [address] TRIGLYCERIDES LEVEL 122 <150 CHOLESTEROL LEVEL 235 <200 HDL CHOLESTEROL 74 >40 LDL CHOLESTEROL 137 <100 NON-HDL-C 161 CHOLESTEROL RISK RATIO 3.175 <5 TSH Reviewed date:09/14/2021 17:11:35 Interpretation: Performing Lab:[facility] [address] [address] , ,[place] [address] THYROID STIMULATING HORMONE 1.870 0.358-3.740 REASON FOR VISIT annual with bloodwork before MEDICAL (GENERAL) HISTORY Type Description Date Medical History cervicalgia Medical History endometriosis Medical History obesity Medical History herpes simplex Medical History arthralgias, hands Medical History 05/30 - EKG SB, no comparisons. Medical History migraine headache Medical History viral ? cyst in throat, DR. Murillo Medical History Ruma Maradiaga breast cancer r isk calculation 12 % and genetic mutation neg 2018 Medical History kidney infection 2018 Medical History hyperlipidemia, ASCVD 2.8% 09/06 Surgical History L foot, bunionectomy 2008 Surgical History laparoscopies x 3, endometriosis Surgical History Arthroscopy right knee, meni scal repair - Dr chirag Russo 03/31/13 Surgical History left knee at [facility] Dr Chirag Russo Ju Surgical History colonoscopy , [facility], repeat in 10 y 03/2014 Surgical History CYSTO 06/22/2019 Surgical History left knee surgery 10/07 Hospitalization History knee surgery 10/07 Goals Section No Information Health Concerns No Information MEDICAL EQUIPMENT No Information MENTAL STATUS No Information FUNCTIONAL STATUS No Information ASSESSMENTS Encounter Date Diagnosis Assessment Notes Treatment Notes Treatm ent Clinical Notes Aug, Annual physical exam (ICD-10 - Z00.00) Counseled on RHM, safety, imms. Aug, Mixed hyperlipidemia (ICD-10 - E78.2) Pt didn't complete her BW. Aug, Other obesity due to excess calories (ICD-10 - E 66.09) Pt was counselled on the importance of diet and exercise in maintaining a healthy weight and that patients weight currently poses a health risk. Pt verbalizes understanding Aug, Migraine, unspecified, not i ntractable, without status migrainosus (ICD-10 - G43.909) Aug, Grief (ICD-10 - F43.21) Aug, Impaired fasting glucose (ICD-10 - R73.01) Due for BW. Aug, [facility]. COVID Moderna x 2, 12/12/20, will schedule booster when available. Counseled on Shingles vaccines. 03/31 Leidy colonoscopy, repeat in 10 years. PLAN OF TREATMENT Treatment Notes Assessment Notes Clinical Notes Annual physical exam Counseled on RHM, safety, imms. Mixed hyperlipidemia Pt didn't complete her BW. Other obesity due to excess calories Pt was counselled on the importance of diet and exercise in maintaining a healthy weight and that patients weight currently poses a health risk. Pt verbalizes understanding Impaired fasting glucose Due for BW. Future Test Test Name Order Date CBC with Differential 20220907 Comprehensive Metabolic Profile (CMP) 20220907 HEMOGLOBIN A1c 20220907 LIPID PANEL (CARDIAC RISK) 20220907 TSH 20220907 Next Appt Details 1 Year, BW before Reason: Provider Name:Chata Potter, 2022-09-07 04:00:00 PM, [address] , , [place], [address], Insurance Providers Payer Name Payer Address Payer Phone Insured Name Patient Relati onship to Insured Coverage Start Date Coverage End Date [employer] [place] [employer] [phone] [facility] [id number] LOUIE HAUSER self
--- OUTSIDE RECORDS SUMMARY | 2021-09-26 14:55 | CCD ---
Author Author [facility] Organization [facility] Address Unknown Phone Unavailable Care Team Providers Care Theatre Instructor Name Role Phone Sarabjit Masone Soledad COLE, PA-Carolyn Unavailable Unavailabl e Fish, [facility] Unavailable Unavailabl e Fish, Catia [facility]ad [facility], [facility]C Unavailable Unavailabl e Fish, Catia Sol[facility]ad [facility], [facility]-C Unavailable Unavailabl e Fish, Catia Soledad [facility], [facility]-C Unavailable Unavailabl e Fish, Catia Sol[facility]ad [facility], [facility]-C Unavailable Unavailabl e Fish, [facility] Unavailable Unavailabl e Fish, [facility] Unavailable Unavailabl e Fish, Catia [facility]ad [facility] Unavailable Unavailabl e Fish, Catia Soledad [facility], [facility]C Unavailable Unavailabl e Fish, Catia Soledad [facility], [facility]C Unavailable Unavailabl e Fish, Catia Soledad [facility], [facility]-C Unavailable Unavailabl e Fish, Catia Soledad [facility], [facility]C Unavailable Unavailabl e Fish, Catia Soledad [facility], [facility]-C Unavailable Unavailabl e Fish, [facility], PA-C Unavailable Unavailabl e Fish, [facility], PA-C Unavailable Unavailabl e Fish, [facility], PA-C Unavailable Unavailabl e Fish, [facility], PA-C Unavailable Unavailabl e Fish, [facility], PA-C Unavailable Unavailabl e Fish, [facility], PA-C Unavailable Unavailabl e Fish, [facility], PA-C Unavailable Unavailabl e Fish, [facility], PA-C Unavailable Unavailabl e Fish, [facility], PA-C Unavailable Unavailabl e Fish, [facility], PA-C Unavailable Unavailabl e Fish, [facility], PA-C Unavailable Unavailabl e Fish, [facility], PA-C Unavailable Unavailabl e Fish, [facility], PA-C Unavailable Unavailabl e Fish, [facility], PA-C Unavailable Unavailabl e Fish, [facility], PA-C Unavailable Unavailabl e Fish, [facility], PA-C Unavailable Unavailabl e Fish, [facility], PA-C Unavailable Unavailabl e Fish, [facility], PA-C Unavailable Unavailabl e Fish, [facility], PA-C Unavailable Unavailabl e Fish, [facility], PA-C Unavailable Unavailabl e Fish, [facility], PA-C Unavailable Unavailabl e Fish, [facility], PA-C Unavailable Unavailabl e Lois Fung Unavailable Unavailable FungLois Unavailable Unavailable FungLois Unavailable Unavailable [facility] Unavailable Unavailable [place] Unavailable Unavailable [place] Unavailable Unavailable [facility] Unavailable Unavailable [facility] Unavailable Unavailable [place] Unavailable Unavailable [place] Unavailable Unavailable Re-disclosure Warning The records that you are about to access may contain information from federally-assisted alcohol or drug abuse programs. If such information is present, then the following federally mandated warning applies: This information has been disclosed to you from records protected by federal confidentiality rules (42 CFR part 2). The federal rules prohibit you from making any further disclosure of this information unless further disclosure is expressly permitted by the written consent of the person to whom it pertains or as otherwise permitted by 42 CFR part 2. A general authorization for the release of medical or other information is NOT sufficient for this purpose. The Federal rules restrict any use of the information to criminally investigate or prosecute any alcohol or drug abuse patient.The records that you are about to access may contain highly sensitive health information, the redisclosure of which is protected by Article 27-F of the [facility] Public Health law. If you continue you may have access to information: Regarding HIV / AIDS; Provided by facilities licensed or operated by the [facility] Office of Mental Health; or Provided by the [facility] Office for People With Developmental Disabilities. If such information is present, then the following [facility] mandated warning applies: This information has been disclosed to you from confidential records which are protected by state law. State law prohibits you from making any further disclosure of this information without the specific written consent of the person to whom it pertains, or as otherwise permitted by law. Any unauthorized further disclosure in violation of state law may result in a fine or mcfp sentence or both. A general authorization for the release of medical or other information is NOT sufficient authorization for further disc losure. Family History Family Member Name Family Member Gender Family Member Status Date o f Status Description Data Source(s) Unknown Unknown Problem [facility] ([facility]) Unknown Male Problem MED[facility] ([facility] ) Encounters Encounter Providers Location Date Indications Data Source(s ) Outpatient [address] [facility] [place] [address] 09/07/2021 12:00:00 AM EDT eCW1 ([facility]) Outpatient [address] [facility] [place] [address] 06/20/2021 12:00:00 AM EDT eCW1 ([facility]) Unknown [address] [facility] [place] [address] 05/26/2021 12:00:00 AM EDT eCW1 ([facility]) Outpatient [address] [facility] [place] [address] 05/23/2021 12:00:00 AM EDT eCW1 ([facility]) Unknown [address] [facility] [place] [address] 04/26/2021 12:00:00 AM EDT eCW1 ([facility]) Outpatient [address] [facility] [place] [address] 12/02/2020 12:00:00 AM EST eCW1 ([facility]) Office Visit Attender: Soledad COLE PA-C Physical Therapy 11/07/2020 10:30:00 AM EST MEDENT ([facility]) Outpatient [address] [facility] [address] 09/16/2020 12:00:00 AM EDT eCW1 ([facility]) Unknown [address] [facility] [address] 09/16/2020 12:00:00 AM EDT eCW1 ([facility]) Outpatient [address] [facility] [place] [address] 09/05/2020 12:00:00 AM EDT eCW1 ([facility]) Outpatient Attender: Esperanza gonsalves 08/26/2020 08:30:00 AM EDT MED[facility] ([facility]) Immunizations Vaccine Date Status Description Data Source(s) COVID-19 VACCINE Moderna 12/12/2020 12:00:00 AM EST completed [facility] Vaccine Series Complete: YESThis Data wa s Submitted to [facility] Via [employer]. COVID-19 VACCINE Moderna 11/14/2020 12:00:00 AM EST completed [facility] Vaccine Series Complete: NOThis Data was Submitted to [facility] Via [employer]. Medications Medication Brand Name Start Date Product Form Dose Route Admi nistrative Instructions Pharmacy Instructions Status Indications Reaction Description Data Source(s) 500 mg 04/27/2021 12:00:00 AM EDT tablet 6 TAKE ONE TABLET BY MOUTH TWICE A DAY NEEDED TAKE ONE TABLET BY MOUTH TWICE A DAY NEEDED SOLD: 05/03/2021 [facility] 500 mg 04/27/2021 12:00:00 AM EDT tablet 6 TAKE ONE TABLET BY MOUTH TWICE A DAY NEEDED TAKE ONE TABLET BY MOUTH TWICE A DAY NEEDED SOLD: 07/06/2021 [facility] 15 mg 04/06/2021 12:00:00 AM EDT tablet 30 TAKE ONE TABLET BY MOUTH EVERY DAY WITH DINNER TAKE ONE TABLET BY MOUTH EVERY DAY WITH DINNER SOLD: [facility] 500 mg 03/29/2021 12:00:00 AM EDT capsule 12 TAKE 4 CAPSULES BY MOUTH 1 HOUR PRIOR TO APPOINTMENT TAKE 4 CAPSULES BY MOUTH 1 HOUR PRIOR TO APPOINTMENT S OLD: 03/31/2021 [facility] 500 mg 03/01/2021 12:00:00 AM EDT tablet 10 TAKE ONE TABLET BY MOUTH EVERY DAY FOR 10 DAYS TAKE ONE TABLET BY MOUTH EVERY DAY FOR 10 DAYS SOLD: [facility] No Active Medications 02/06/2021 12:00:00 AM EDT active MED[facility] ([facility]) 5-325 mg 10/03/2020 12:00:00 AM EST tablet 20 TAKE 1-2 TABLETS BY MOUTH EVERY 6-8 HOURS NEEDED FOR PAIN MAXIMUM DAILY DOSE = 4 TAKE 1-2 TABLETS BY MOUTH EVERY 6-8 HOURS NEEDED FOR PAIN MAXIMUM DAILY DOSE = 4 SOLD: 10/03/2020 [facility] Acetaminophen 325 MG / Oxycodone Hydrochloride 5 MG Or al Tablet Oxycodone-Acetaminophen 10/03/2020 12:00:00 AM EST completed [facility] ([facility]) 500 mg 09/05/2020 12:00:00 AM EDT tablet 6 TAKE ONE TABLET BY MOUTH TWICE A DAY FOR 3 DAYS TAKE ONE TABLET BY MOUTH TWICE A DAY FOR 3 DAYS SOLD: 2019 [facility] 500 mg 09/05/2020 12:00:00 AM EDT tablet 6 TAKE ONE TABLET BY MOUTH TWICE A DAY FOR 3 DAYS TAKE ONE TABLET BY MOUTH TWICE A DAY FOR 3 DAYS SOLD: 2019 [facility] 500 mg 09/05/2020 12:00:00 AM EDT tablet 6 TAKE ONE TABLET BY MOUTH TWICE A DAY FOR 3 DAYS TAKE ONE TABLET BY MOUTH TWICE A DAY FOR 3 DAYS SOLD: 2020 [facility] 500 mg 09/05/2020 12:00:00 AM EDT tablet 6 TAKE ONE TABLET BY MOUTH TWICE A DAY FOR 3 DAYS TAKE ONE TABLET BY MOUTH TWICE A DAY FOR 3 DAYS SOLD: 2020 [facility] chlorhexidine gluconate 40 MG/ML Medicated Liquid Soap CHLOR HEXIDINE GLUCONATE 08/30/2020 12:00:00 AM EDT liquid 237 USE I N SHOWER ONCE DAILY FOR 5 DAYS BEFORE SURGERY USE IN SHOWER ONCE DAILY FOR 5 DAYS BEFORE SURGERY CHRIS [facility] 2 % 08/30/2020 12:00:00 AM EDT ointment 22 APPLY PEA SIZED AMOUNT TO NASAL PASSAGES THREE TIMES A DAY FOR 5 DAYS BEFORE SURGERY APPLY PEA SIZED AMOUNT TO NASAL PASSAGES THREE TIMES A DAY FOR 5 DAYS BEFORE SURGERY SOLD: 09/06/2020 [facility] Mupirocin 0.02 MG/MG Topical Ointment [Bactroban] Bactroban 08/30/2020 12:00:00 AM EDT completed MEDENT ([facility]) chlorhexidine gluconate 40 MG/ML Medicated Liquid Soap [Hibi clens] Hibiclens 08/30/2020 12:00:00 AM EDT completed MED[facility] ([facility]) No Active Medications 08/26/2020 12:00:00 AM EDT completed MED[facility] ([facility], [facility]) doxycycline hyclate 100 MG Oral Capsule Doxycycline Hyclate 08/26/2020 12:00:00 AM EDT active MEDENT ([facility], [facility]) 60 ACTUAT Albuterol 0.09 MG/ACTUAT Metered Dose Inhaler Albu terol Sulfate HFA 08/26/2020 12:00:00 AM EDT RESPIRATORY active MEDENT ([facility], [facility]) Prednisone 20 MG Oral Tablet Prednisone 08/26/2020 12:00:00 AM EDT active MEDENT ([facility]) Insurance Providers Payer name Policy type / Coverage type Policy ID Covered democrat ID Covered democrat's relationship to griffith Policy Griffith Plan Information BCBS OF [place] 306/806 [id number] SP [id number] [facility] Part B [id number] Self [id number] BS [place] Part B [id number] Self [id number] BS [facility] Part B [id number] Self [id number] BS [facility] [employer] Part B [id number] Self [id number] BS [place] [employer] Part B [id number] Self [id number] BS [place] [employer] Part B [id number] [id number] Self [id number] BS [place] [employer] Part B [id number] [id number] Self [id number] BS [place] [employer] Part B [id number] [id number] Self [id number] BS [place] [employer] Part B [id number] [id number] Self [id number] BS [place] [employer] Part B [id number] Self [id number] BS [place] [employer] Part B [id number] Self [id number] BS [facility] Part B [id number] Self [id number] BS [place] [employer] [id number] [id number] Self [id number] BS [place] Commercial [id number] Self [id number] BS [facility] [employer] [id number] Self [id number] BS [place] [employer] [id number] Self [id number] BS [facility] [employer] [id number] Self [id number] BS [facility] [employer] [id number] Self [id number] BS [facility] [employer] [id number] Self [id number] BS [place] [employer] [id number] [id number] Self [id number] BS [facility] [employer] [id number] [id number] Self [id number] BS [facility] [employer] [id number] 2.16840.1.430[id number] Self [id number] BS [facility] [employer] [id number] [id number] Self [id number] BS [place] [employer] [id number] Self [id number] [employer] P[place] 302/307 [id number] SP [id number] [employer] [place] 306/806 [id number] SP [id number] [employer] [id number] 2.0.1.725013.3.227.99. 1767.72396.0 Self [id number] [employer] [id number] 2.0.1.504322.3.227.99. [id number] Self [id number] [employer] [id number] 2.0.1.306434.3.227.99. [id number] Self [id number] ANSI-Commercial [id number] [employer] [place] PPO 302/307 [id number] SP [id number] ANSI-Commercial [id number] [employer] BCBS B [id number] S VYS [id number] ANSI-Commercial [id number] [facility] [id number] SP [id number] [employer] [id number]. [id number] Self [id number] [employer] [place] 306/806 [id number] SP [id number] [employer] [place] 306/806 [id number] SP [id number] [employer] [id number] Self [id number] [employer] [id number] Self [id number] ANSI-Commercial [id number] ANSI-Commercial [id number] ANSI-Commercial [id number] [employer] [place] 306/806 [id number] SP [id number] [employer] [id number]. [id number] Self [id number] ANSI-Commercial [id number] ANSI-Commercial [id number] ANSI-Commercial [id number] Problems, Conditions, and Diagnoses Code Display Name Description Problem Type Effective Dates Data Source(s) M17.0 [id number] Bilateral primary osteoarthritis of knee Problem 09/16/2020 12:00:00 AM EDT eCW1 ([facility]) F43.21 [id number] Grief Problem 09/05/2020 12:00:00 AM ED T eCW1 ([facility]) Surgeries/Procedures Procedure Description Date Indications Data Source(s) RADIOLOGIC EXAMINATION KNEE 3 VIEWS 02/06/2021 12:00:0 0 AM EDT MEDENT ([facility] ) RADIOLOGIC EXAMINATION KNEE 3 VIEWS 11/07/2020 12:00:0 0 AM EST MEDENT ([facility] ) ARTHRP KNE CONDYLE&PLATU MEDIAL&LAT CMPRTS 09/26/2020 12:00:00 AM EST MEDENT ([facility] ) ARTHRP KNE CONDYLE&PLATU MEDIAL&LAT CMPRTS 09/26/2020 12:00:00 AM EST MEDENT ([facility] ) PRESSURIZED/NONPRESSURIZED INHALATION TREATMENT 2019 12:00:00 AM EDT MEDENT ([facility], [facility]) RADIOLOGIC EXAMINATION KNEE 3 VIEWS 08/11/2020 12:00:0 0 AM EDT MEDENT ([facility]) Results ID Date Data Source TSH 09/12/2021 12:00:00 AM EDT eCW1 ([facility]) Name Value Range Interpretation Code Description Data Olga rce(s) Supporting Document(s) 1.870 0.358-3.740 THYROID STIMULATING HORM ONE eCW1 ([facility]) ID Date Data Source LIPID PANEL (CARDIAC RISK) 09/12/2021 12:00:00 AM EDT eCW1 ( [facility]) Name Value Range Interpretation Code Description Data Olga rce(s) Supporting Document(s) Cholesterol [Moles/volume] in Serum or Plasma 235 <200 CHOLESTEROL LEVEL eCW1 ([facility]) Triglyceride [Mass/volume] in Serum or Plasma by calculation 122 <150 TRIGLYCERIDES LEVEL eCW1 ([facility]) Cholesterol in HDL [Moles/volume] in Serum or Plasma 74 >40 HDL CHOLESTEROL eCW1 ([facility]) 161 NON-HDL-C eCW1 ([facility]) Cholesterol in LDL [Mass/volume] in Serum or Plasma by calculation 137 <100 LDL CHOLESTEROL eCW1 ([facility]) 3.175 <5 CHOLESTEROL RISK RATIO eCW1 ([facility]) ID Date Data Source [id number] 09/12/2021 12:00:00 AM EDT eCW1 ([facility]) Name Value Range Interpretation Code Description Data Olga rce(s) Supporting Document(s) Hemoglobin A1c/Hemoglobin.total in Blood 5.6 HEMOGLOBIN A1c eCW1 ([facility]) ID Date Data Source Comprehensive Metabolic Profile (CMP) 09/12/2021 12:00:00 AM EDT eCW1 ([facility]) Name Value Range Interpretation Code Description Data Olga rce(s) Supporting Document(s) > 60.0 >51 GLOMERULAR FILTRATION RATE eCW 1 ([facility]) 0.59 0.55-1.30 CREATININE FOR GFR eCW1 ([facility]) 105 70-100 GLUCOSE, FASTING eCW1 ([facility]) 17 7-18 BLOOD UREA NITROGEN eCW1 ([facility]) 112 98-107 CHLORIDE LEVEL eCW1 ([facility]) 144 136-145 SODIUM LEVEL eCW1 ([facility]) 4.8 3.5-5.1 POTASSIUM SERUM eCW1 ([facility]) 13 7-37 AST/SGOT eCW1 ([facility]) 9.5 8.5-10.1 CALCIUM LEVEL eCW1 ([facility]) 28 21-32 CARBON DIOXIDE LEVEL eCW1 ([facility]) 6.5 6.4-8.2 TOTAL PROTEIN eCW1 ([facility]) 0.2 0.2-1.0 BILIRUBIN,TOTAL eCW1 ([facility]) 25 12-78 ALT/SGPT eCW1 ([facility]) 129 45-117 ALKALINE PHOSPHATASE eCW1 ([facility]) 3.9 3.2-5.2 ALBUMIN eCW1 ([facility]) 1.5 1.2-2.2 ALBUMIN/GLOBULIN RATIO eCW1 ([facility]) ID Date Data Source CBC with Differential 09/12/2021 12:00:00 AM EDT eCW1 ([facility]) Name Value Range Interpretation Code Description Data Olga rce(s) Supporting Document(s) 4.78 4.00-5.40 RED BLOOD COUNT eCW1 ([facility]) 5.4 4.0-10.0 WHITE BLOOD COUNT eCW1 ([facility]) 13.9 12.0-15.5 HEMOGLOBIN eCW1 ([facility]) 43.7 36.0-47.0 HEMATOCRIT eCW1 ([facility]) 91.4 80.0-96.0 MEAN CORPUSCULAR VOLUME e CW1 ([facility]) 29.1 27.0-33.0 MEAN CORPUSCULAR HEMOGLOB IN eCW1 ([facility]) 13.2 11.5-14.5 RED CELL DISTRIBUTION WID TH eCW1 ([facility]) 31.8 32.0-36.5 MEAN CORPUSCULAR HGB CONC eCW1 ([facility]) 55.0 36.0-66.0 NEUTROPHILS % eCW1 ([facility]) 269 150-450 PLATELET COUNT, AUTOMATED eCW1 ([facility]) 7.6 2.0-8.0 MONO % eCW1 ([facility]) 3.2 0.0-3.0 EOS % eCW1 ([facility]) 33.4 24.0-44.0 LYMPH % eCW1 ([facility]) 1.8 1.5-5.0 LYMPH # eCW1 ([facility]) 3.0 1.5-8.5 NEUTROPHILS # eCW1 ([facility]) 0.6 0.0-1.0 BASO % eCW1 ([facility]) 0.2 0.0-0.5 EOS # eCW1 ([facility]) 0.4 0.0-0.8 MONO # eCW1 ([facility]) 0.0 0.0-0.2 BASO # eCW1 ([facility]) ID Date Data Source [id number] 02/22/2021 12:15:00 PM EDT [facility] Name Value Range Interpretation Code Description Data Olga rce(s) Supporting Document(s) SARS-CoV-2 (COVID-19) RNA [Presence] in Respiratory specimen by HINA with probe detection Not Detected [facility] This lab was ordered by [facility] and reported by [facility]. ID Date Data Source [id number] 09/21/2020 12:30:00 PM EST [facility] Name Value Range Interpretation Code Description Data Olga rce(s) Supporting Document(s) SARS coronavirus 2 RNA [facility] This lab was ordered by [facility] and reported by [facility]. ID Date Data Source [id number] 09/13/2020 08:10:00 AM EDT MEDENT ([facility]) Name Value Range Interpretation Code Description Data Olga rce(s) Supporting Document(s) Erythrocyte sedimentation rate by Westergren method 6 mm/hr 0-30 [facility] ([facility]) ID Date Data Source [id number] 09/13/2020 08:10:00 AM EDT MED[facility] ([facility]) Name Value Range Interpretation Code Description Data Olga rce(s) Supporting Document(s) Hemoglobin 14.1 g/dL 12.0-15.5 MED[facility] ([facility]) White Blood Count 5.1 10 4.0-10.0 MED[facility] ([facility] ) Red Blood Count 4.92 10 4.00-5.40 MEDENT ([facility]) Hematocrit 44.4 % 36.0-47.0 [facility] ([facility] ) Mean Corpuscular Volume 90.2 fl 80.0-96.0 M EDENT ([facility]) Mean Corpuscular Hemoglobin 28.7 pg 27.0-33.0 MED[facility] ([facility]) Red Cell Distribution Width 12.7 % 11.5-14.5 [facility] ([facility]) Mean Corpuscular HGB Conc 31.8 g/dL 32.0-36.5 [facility] ([facility]) Platelet Count, Automated 264 10 150-450 [facility] ([facility]) Nucleated Red Blood Cell % 0.0 % 0-0 [facility] ([facility]) ID Date Data Source [id number] 09/13/2020 08:10:00 AM EDT MED[facility] ([facility]) Name Value Range Interpretation Code Description Data Olga rce(s) Supporting Document(s) Creatinine For GFR 0.76 mg/dL 0.55-1.30 [facility] ([facility]) Blood Urea Nitrogen 14 mg/dL 7-18 MED[facility] (No [facility]) Glucose, Fasting 105 mg/dL 70-100 [facility] ([facility]) Sodium Level 142 meq/L 136-145 [facility] ([facility]) Potassium Serum 4.6 meq/L 3.5-5.1 [facility] ([facility]) Glomerular Filtration Rate Laboratory test result [facility] ([facility]) <content>Units are mL/min/1.73 m2</content>
<content></content>
<content>Chronic Kidney Disease Staging per NKF:</content>
<content></content>
<content>Stage I & II GFR >=60 Normal to Mildly Decreased</content>
<content>Stage III GFR 30- 59 Moderately Decreased</content>
<content>Stage IV GFR 15-29 Severely Decreased</content>
<content>Stage V GFR <15 Very Little GFR Left</content>
<content>ESRD GFR <15 on RESULTS TECHNICIAN</content>
<content></content> Chloride Level 109 meq/L 98-107 [facility] ([facility]) Anion Gap 5 meq/L 8-16 [facility] ([facility]) Carbon Dioxide Level 28 meq/L 21-32 [facility]) Calcium Level 10.1 mg/dL 8.5-10.1 [facility] ([facility]) Ast/Sgot 19 U/L 7-37 [facility] ([facility]) Alt/SGPT 33 U/L 12-78 MED[facility] ([facility]) Alkaline Phosphatase 121 U/L 45-117 [facility] ([facility]) Bilirubin,Total 0.4 mg/dL 0.2-1.0 [facility] ([facility]) Total Protein 7.0 GM/DL 6.4-8.2 [facility] ([facility]) Albumin 4.1 GM/DL 3.2-5.2 [facility] ([facility]) Albumin/Globulin Ratio 1.4 1.2-2.2 [facility] ([facility]) ID Date Data Source [id number] 09/13/2020 08:10:00 AM EDT [facility] ([facility]) Name Value Range Interpretation Code Description Data Olga rce(s) Supporting Document(s) Prothrombin Time 11.9 s 12.5-14.3 [facility] ([facility]) Inr 0.86 [facility] ([facility]) THERAPUTIC HUMAN INR VALUES INDICATIONS NORMAL RANGES PROPHYLAXIS/TREATMENT OF: VENOUS THROMBOSIS 2.0-3.0 PULMONARY EMBOLISM 2.0-3.0 PREVENTION OF SYSTEMIC EMBOLISM FROM: TISSUE HEART VALVES 2.0-3.0 ACUTE MYOCARDIAL INFARCTION 2.0-3.0 VALVULAR HEART DISEASE 2.0-3.0 ATRIAL FIBRILLATION 2.0-3.0 MECHANICAL VALVES(HIGH RISK) 2.5-3.5 RECURRENT MYOCARDIAL INFARCTION 2.5-3.5 Procedure Social History Code Duration Value Status Description Data Source(s ) Smoking 09/07/2021 12:00:00 AM EDT Never Smoker completed Never S donal eCW1 ([facility]) Smoking 06/20/2021 12:00:00 AM EDT Never Smoker completed Never S moker eCW1 ([facility]) Smoking 05/23/2021 12:00:00 AM EDT Never Smoker completed Never S moker eCW1 ([facility]) Smoking 05/23/2021 12:00:00 AM EDT Never Smoker completed Never S moker eCW1 ([facility]) Smoking 12/02/2020 12:00:00 AM EST Never Smoker completed Never S moker eCW1 ([facility]) Smoking 12/02/2020 12:00:00 AM EST Never Smoker completed Never S moker eCW1 ([facility]) Smoking 09/16/2020 12:00:00 AM EDT Never Smoker completed Never S moker eCW1 ([facility]) Smoking 09/16/2020 12:00:00 AM EDT Never Smoker completed Never S moker eCW1 ([facility]) Smoking 09/05/2020 12:00:00 AM EDT Never Smoker completed Never S moker eCW1 ([facility]) Vital Signs ID Date Data Source UNK Name Value Range Interpretation Code Description Data Source(s) Body weight 207 [lb_av] 207 [lb_av] eCW1 ([facility]) Body height 63.25 [in_i] 63.25 [in_i] eCW1 ([facility]) Body mass index (BMI) [Ratio] 36.38 kg/m2 36.38 kg/m2 eCW1 ([facility]) Heart rate 77 /min 77 /min eCW1 ([facility]) Respiratory rate 18 /min 18 /min eCW1 ([facility]) Body temperature 97.4 [degF] 97.4 [degF] eCW1 ( [facility]) Systolic blood pressure 142 mm[Hg] 142 mm[Hg] e CW1 ([facility]) Diastolic blood pressure 84 mm[Hg] 84 mm[Hg] eCW1 ([facility]) Body weight 203 [lb_av] 203 [lb_av] eCW1 ([facility]) Body height 63.25 [in_i] 63.25 [in_i] eCW1 ([facility]) Body mass index (BMI) [Ratio] 35.67 kg/m2 35.67 kg/m2 eCW1 ([facility]) Heart rate 80 /min 80 /min eCW1 ([facility]) Respiratory rate 18 /min 18 /min eCW1 ([facility]) Body temperature 97.3 [degF] 97.3 [degF] eCW1 ( [facility]) Systolic blood pressure 138 mm[Hg] 138 mm[Hg] e CW1 ([facility]) Diastolic blood pressure 76 mm[Hg] 76 mm[Hg] eCW1 ([facility]) Body weight 203 [lb_av] 203 [lb_av] eCW1 ([facility]) Body height 63.25 [in_i] 63.25 [in_i] eCW1 ([facility]) Body mass index (BMI) [Ratio] 35.67 kg/m2 35.67 kg/m2 eCW1 ([facility]) Heart rate 77 /min 77 /min eCW1 ([facility]) Respiratory rate 18 /min 18 /min eCW1 ([facility]) Body temperature 96.5 [degF] 96.5 [degF] eCW1 ( [facility]) Systolic blood pressure 170 mm[Hg] 170 mm[Hg] e CW1 ([facility]) Diastolic blood pressure 90 mm[Hg] 90 mm[Hg] eCW1 ([facility]) Body weight 203 [lb_av] 203 [lb_av] eCW1 ([facility]) Body weight 92.08 kg 92.08 kg eCW1 ([facility]) Body height 63.25 [in_i] 63.25 [in_i] eCW1 ([facility]) Body mass index (BMI) [Ratio] 35.67 kg/m2 35.67 kg/m2 eCW1 ([facility]) Systolic blood pressure 156 mm[Hg] 156 mm[Hg] e CW1 ([facility]) Diastolic blood pressure 81 mm[Hg] 81 mm[Hg] eCW1 ([facility]) Body temperature 96.9 [degF] 96.9 [degF] MEDENT ([facility]) Body weight 200 [lb_av] 200 [lb_av] eCW1 ([facility]) Body height 63.25 [in_i] 63.25 [in_i] eCW1 ([facility]) Diastolic blood pressure 78 mm[Hg] 78 mm[Hg] eCW1 ([facility]) Body mass index (BMI) [Ratio] 35.15 kg/m2 35.15 kg/m2 eCW1 ([facility]) Heart rate 60 /min 60 /min eCW1 ([facility]) Respiratory rate 18 /min 18 /min eCW1 ([facility]) Body temperature 96.9 [degF] 96.9 [degF] eCW1 ( [facility]) Systolic blood pressure 138 mm[Hg] 138 mm[Hg] e CW1 ([facility]) Body weight 202.6 [lb_av] 202.6 [lb_av] eCW1 ([facility]) Body height 63.25 [in_i] 63.25 [in_i] eCW1 ([facility]) Body mass index (BMI) [Ratio] 35.60 kg/m2 35.60 kg/m2 eCW1 ([facility]) Heart rate 81 /min 81 /min eCW1 ([facility]) Respiratory rate 18 /min 18 /min eCW1 ([facility]) Body temperature 97.8 [degF] 97.8 [degF] eCW1 ( [facility]) Systolic blood pressure 124 mm[Hg] 124 mm[Hg] e CW1 ([facility]) Diastolic blood pressure 80 mm[Hg] 80 mm[Hg] eCW1 ([facility]) Systolic blood pressure 132 mm[Hg] 132 mm[Hg] M EDENT ([facility]) Diastolic blood pressure 82 mm[Hg] 82 mm[Hg] MEDENT ([facility], [facility]) Heart rate 72 /min 72 /min MED[facility] ([facility], [facility]) Respiratory rate 20 /min 20 /min [facility] ( [facility], [facility]) Oxygen saturation in Arterial blood by Pulse oximetry 98 % 98 % MEDENT ([facility], [facility]) Body temperature 98.4 [degF] 98.4 [degF] MEDENT ([facility], [facility]) Body weight 198.00 [lb_av] 198.00 [lb_av] MEDEN T ([facility], [facility]) Body height 64 [in_i] 64 [in_i] MEDENT ([facility], [facility]) 5'4" Body mass index (BMI) [Ratio] 34.0 kg/m2 34.0 k g/m2 [facility] ([facility], [facility]) Body temperature 96.3 [degF] 96.3 [degF] [facility] ([facility] ) Body height 63.25 [in_i] 63.25 [in_i] MEDENT ([facility] 5'3.25" Body weight 198.25 [lb_av] 198.25 [lb_av] MEDEN T ([facility] ) Body mass index (BMI) [Ratio] 34.8 kg/m2 34.8 k g/m2 [facility] ([facility] )
[2021-09-26] MEDS ORDERED: METOCLOPRAMIDE INJ 10MG/2ML VIAL (J2765 PER 1) IV ONE (15:05)
[2021-09-26] MEDS ORDERED: PHEN-935 PO (15:06)
[2021-09-26] MEDS ORDERED: MORPHINE 2 MG/ML 1ML VIAL (J2270) IV ONE (15:10)
[2021-09-26] MEDS ORDERED: ONDANSETRON 4MG/2ML VIAL IV ONE (15:10)
[2021-09-26 15:30] LABS: BASO % 0.5 % (0.0-1.0); EOS # 0.1 10^3/uL (0.0-0.5); HEMATOCRIT 46.7 % (36.0-47.0); HEMOGLOBIN 14.9 g/dl (12.0-15.5); LYMPH # 1.9 10^3/uL (1.5-5.0); LYMPH % 31.2 % (24.0-44.0); MEAN CORPUSCULAR HEMOGLOBIN 28.7 pg (27.0-33.0); MEAN CORPUSCULAR HGB CONC 31.9 g/dl (32.0-36.5); MONO # 0.5 10^3/uL (0.0-0.8); MONO % 7.8 % (2.0-8.0); NEUTROPHILS # 3.6 10^3/uL (1.5-8.5); NEUTROPHILS % 58.3 % (36.0-66.0); PLATELET COUNT, AUTOMATED 298 10^3/uL (150-450); RED BLOOD COUNT 5.19 10^6/uL (4.00-5.40); WHITE BLOOD COUNT 6.1 10^3/uL (4.0-10.0)
[2021-09-26 15:42] LABS: BLOOD UREA NITROGEN 23 MG/DL (7-18); CALCIUM LEVEL 10.3 MG/DL (8.5-10.1); CARBON DIOXIDE LEVEL 29 MEQ/L (21-32); CHLORIDE LEVEL 107 MEQ/L (98-107); CREATININE FOR GFR 0.66 MG/DL (0.55-1.30); GLOMERULAR FILTRATION RATE > 60.0 (>51); GLUCOSE, FASTING 91 MG/DL (70-100); POTASSIUM SERUM 4.1 MEQ/L (3.5-5.1); SODIUM LEVEL 141 MEQ/L (136-145)
--- NOTE | 2021-09-26 15:55 | REP ---
INDICATION: Headache. COMPARISON: 05/19/2021 TECHNIQUE: Noncontrast axial soft tissue and bone windows with coronal reconstructions provided. FINDINGS: The lateral ventricles are midline, symmetric and without dilatation or displacement. Third and 4th ventricles also unremarkable. See no significant atrophy. Basal ganglia symmetric and normal. Turner-white junction differentiation well-maintained. Cortical stripe preserved. There is no intra or extra-axial hemorrhage, mass, mass effect or edema. The brainstem is intact. Cerebellum unremarkable. There is no posterior fossa hemorrhage. Basal cisterns are intact. Some minor atherosclerotic calcifications of the carotid siphons. The mastoids, visualized sinuses, calvarium and skull base were all grossly intact. IMPRESSION: 1. Negative noncontrast CT brain. Stable examination. No new or acute finding. <Electronically signed by Fortino Bess > 09/26/21 [id number]
[2021-09-26] MEDS ORDERED: KETOROLAC 30 MG/ML 1ML VIAL IV ONE (16:00)
[2021-09-26] MEDS ORDERED: LABETALOL 100MG TAB PO ONE (16:20)
[2021-09-26 16:25] LABS: RSV AMPLIFICATION NEGATIVE (NEGATIVE)
--- OUTSIDE RECORDS SUMMARY | 2021-09-26 16:39 | CCD ---
Author Author [facility] Organization [facility] Address Unknown Phone Unavailable Care Team Providers Care Ip Counsel Name Role Phone Sarabjit Masone Soledad COLE, [...] HEALTH CENTERRaad, PA-C Unavailable Unavailabl e [employer], PA-C Unavailable Unavailabl e [employer], PA-C Unavailable Unavailabl e [employer], PA-C Unavailable Unavailabl e [employer], PA-C Unavailable Unavailabl e [employer], PA-C Unavailable Unavailabl e [employer], PA-C Unavailable Unavailabl e [employer], PA-C Unavailable Unavailabl e [employer], PA-C Unavailable Unavailabl e [employer], PA-C Unavailable Unavailabl e [employer], PA-C Unavailable Unavailabl e [employer], PA-C Unavailable Unavailabl e [employer], PA-C Unavailable Unavailabl e [employer], PA-C Unavailable Unavailabl e [employer], PA-C Unavailable Unavailabl e [employer], PA-C Unavailable Unavailabl e [employer], PA-C Unavailable Unavailabl e [employer], PA-C Unavailable Unavailabl e [employer], PA-C Unavailable Unavailabl e [employer], PA-C Unavailable Unavailabl e [employer], PA-C Unavailable Unavailabl e [employer], PA-C Unavailable Unavailabl e [employer], PA-C Unavailable Unavailabl e Lois Fung Unavailable [...] is protected by Article 27-F of the [facility] Public Health law. If you continue you may have access to information: Regarding HIV / AIDS; Provided by facilities licensed or operated by the [facility] Office of Mental Health; or Provided by the [facility] Office for People With Developmental Disabilities. If such information is present, then the following [facility] mandated warning applies: This information has been [...] law may result in a fine or care home sentence or both. A general authorization for the release of medical or other information is NOT sufficient authorization for further disc losure. Family History Family Member Name Family Member Gender Family Member Status Date o f Status Description Data Source(s) Unknown Unknown Problem MEDENT ([facility]) Unknown Male Problem MED[facility] ([facility] ) Encounters Encounter Providers Location Date Indications Data Source(s ) [place] [address] [facility] [address] 09/07/2021 12:00:00 AM EDT eCW1 ([facility]) [place] [address] [facility] [place] [address] 06/20/2021 12:00:00 AM EDT eCW1 ([facility]) Unknown [address] [facility] [place] [address] 05/26/2021 12:00:00 AM EDT eCW1 ([facility]) Outpatient [address] [facility] [place] [address] 05/23/2021 12:00:00 AM EDT eCW1 ([facility]) Unknown [address] [facility] [place] [address] 04/26/2021 12:00:00 AM EDT eCW1 ([facility]) Outpatient [address] [facility] [place] [address] 12/02/2020 12:00:00 AM EST eCW1 ([facility]) Office Visit Attender: Soledad COLE PA-C Physical Therapy 11/07/2020 10:30:00 AM EST MEDENT ([facility]) Outpatient [address] [facility] [address] 09/16/2020 12:00:00 AM EDT eCW1 ([facility]) Unknown [address] [facility] [address] 09/16/2020 12:00:00 AM EDT eCW1 ([facility]) Outpatient [address] [facility] [place] [address] 09/05/2020 12:00:00 AM EDT eCW1 ([facility]) Outpatient Attender: Esperanza gonsalves 08/26/2020 08:30:00 AM EDT MEDENT ([facility]) Immunizations Vaccine Date Status Description Data Source(s) COVID-19 VACCINE Moderna 12/12/2020 12:00:00 AM EST completed [facility] Vaccine Series Complete: YESThis Data wa s Submitted to [facility]. COVID-19 VACCINE Moderna 11/14/2020 12:00:00 AM EST completed [facility] Vaccine Series Complete: NOThis Data was Submitted to [facility]. Medications Medication Brand Name Start Date Product [...] Bactroban 08/30/2020 12:00:00 AM EDT completed MEDENT ([facility]) chlorhexidine gluconate 40 MG/ML Medicated Liquid Soap [Hibi clens] Hibiclens 08/30/2020 12:00:00 AM EDT completed MEDENT ([facility]) No Active Medications 08/26/2020 12:00:00 AM EDT completed MEDENT ([facility], [facility]) doxycycline hyclate 100 MG Oral Capsule Doxycycline Hyclate 08/26/2020 12:00:00 AM EDT active MEDENT ([facility], [facility]) 60 ACTUAT Albuterol 0.09 MG/ACTUAT Metered Dose Inhaler Albu terol Sulfate HFA 08/26/2020 12:00:00 AM EDT RESPIRATORY active MEDENT ([facility], [facility]) Prednisone 20 MG Oral Tablet Prednisone 08/26/2020 12:00:00 AM EDT active MEDENT ([facility]) Insurance Providers Payer name Policy type / Coverage type Policy ID Covered republican ID Covered republican's relationship to griffith Policy Griffith Plan Information BCBS OF [place] 306/806 [id number] SP [id number] [facility] Part B [id number] Self [id number] BS [facility] Part B [id number] Self [id number] BS [facility] Med[employer] Part B [id number] Self [id number] BS [facility] Part B [id number] Self [id number] BS [facility] Part B [id number] Self [id number] BS [facility] Med[employer] Part B [id number] Self [id number] BS [facility] [employer] Part B [id number] [id number] Self [id number] BS [facility] Med[employer] Part B [id number] Self [id number] BS [facility] Part B [id number] Self [id number] BS [facility] Med[employer] Part B [id number] Self [id number] BS [facility] Med[employer] Part B [id number] Self [id number] BS [facility] Part B [id number] Self [id number] BS [facility] [employer] [id number] Self [id number] BS [facility] [employer] [id number] Self [id number] BS [facility] [employer] [id number] Self [id number] BS [facility] [employer] [id number] Self [id number] BS [facility] [employer] [id number] Self [id number] BS [facility] [employer] [id number] Self [id number] BS [facility] [employer] [id number] Self [id number] BS [facility] [employer] [id number] [id number] Self [id number] BS [facility] [employer] [id number] [id number] Self [id number] BS [facility] [employer] [id number] 2.16840.1.564015.3.227.99.991.993889.0 Self [id number] BS [facility] [employer] [id number] [id number] Self [id number] BS [facility] [employer] [id number] [id number] Self [id number] [place] P[place] 302/307 [id number] SP [id number] [place] 306/806 [id number] SP [id number] [employer] [id number] [id number]. [id number] Self [id number] [employer] [id number] [id number]. [id number] Self [id number] [employer] [id number] 2.0.1.854196.3.227.99. 1767.78653.0 Self [id number] ANSI-Commercial [id number] [place]BS [place] PPO 302/307 [id number] SP [id number] ANSI-Commercial [id number] [employer] BCBS B [id number] S VYS [id number] ANSI-Commercial [id number] [facility] [id number] SP [id number] BCBS/[employer] [id number]. 1767.11858.0 Self [id number] [employer] [place] 306/806 [id number] SP [id number] [employer] [place] 306/806 [id number] SP [id number] BCBS[employer] [id number] Self [id number] BCBS[employer] [id number] Self [id number] ANSI-Commercial [id number] ANSI-Commercial [id number] ANSI-Commercial [id number] [employer] [place] 306/806 [id number] SP [id number] BCBS/[employer] Commercial [id number]. 1767.34727.0 Self [id number] ANSI-Commercial [id number] ANSI-Commercial [id number] ANSI-Commercial [id number] Problems, Conditions, and Diagnoses Code Display Name Description Problem Type Effective Dates Data Source(s) M17.0 [id number] Bilateral primary osteoarthritis of knee Problem 09/16/2020 12:00:00 AM EDT eCW1 ([facility]) F43.21 [id number] Grief Problem 09/05/2020 12:00:00 AM ED T eCW1 ([facility]) Surgeries/Procedures Procedure Description Date Indications Data Source(s) RADIOLOGIC EXAMINATION KNEE 3 VIEWS 02/06/2021 12:00:0 0 AM EDT MEDENT ([facility] ) RADIOLOGIC EXAMINATION KNEE 3 VIEWS 11/07/2020 12:00:0 0 AM EST MEDENT ([facility] ) ARTHRP KNE CONDYLE&PLATU MEDIAL&LAT CMPRTS 09/26/2020 12:00:00 AM EST MEDENT ([facility] ) ARTHRP KNE CONDYLE&PLATU MEDIAL&LAT CMPRTS 09/26/2020 12:00:00 AM EST MEDENT ([facility] ) PRESSURIZED/NONPRESSURIZED INHALATION TREATMENT 2019 12:00:00 AM EDT MEDENT ([facility], [facility]) RADIOLOGIC EXAMINATION KNEE 3 VIEWS 08/11/2020 12:00:0 0 AM EDT MEDENT ([facility]) Results ID Date Data Source TSH 09/12/2021 12:00:00 AM EDT eCW1 ([facility]) Name Value Range Interpretation Code Description Data Olga rce(s) Supporting Document(s) 1.870 0.358-3.740 THYROID STIMULATING HORM ONE eCW1 ([facility]) ID Date Data Source LIPID PANEL (CARDIAC RISK) 09/12/2021 12:00:00 AM EDT eCW1 ( [facility]) Name Value Range Interpretation Code Description Data Olga rce(s) Supporting Document(s) Cholesterol [Moles/volume] in Serum or Plasma 235 <200 CHOLESTEROL LEVEL eCW1 ([facility]) Triglyceride [Mass/volume] in Serum or Plasma by calculation 122 <150 TRIGLYCERIDES LEVEL eCW1 ([facility]) Cholesterol in HDL [Moles/volume] in Serum or Plasma 74 >40 HDL CHOLESTEROL eCW1 ([facility]) 161 NON-HDL-C eCW1 ([facility]) Cholesterol in LDL [Mass/volume] in Serum or Plasma by calculation 137 <100 LDL CHOLESTEROL eCW1 ([facility]) 3.175 <5 CHOLESTEROL RISK RATIO eCW1 ([facility]) ID Date Data Source [id number] 09/12/2021 12:00:00 AM EDT eCW1 ([facility]) Name Value Range Interpretation Code Description Data Olga rce(s) Supporting Document(s) Hemoglobin A1c/Hemoglobin.total in Blood 5.6 HEMOGLOBIN A1c eCW1 ([facility]) ID Date Data Source Comprehensive Metabolic Profile (CMP) 09/12/2021 12:00:00 AM EDT eCW1 ([facility]) Name Value Range Interpretation Code Description Data Olga rce(s) Supporting Document(s) > 60.0 >51 GLOMERULAR FILTRATION RATE eCW 1 ([facility]) 0.59 0.55-1.30 CREATININE FOR GFR eCW1 ([facility], [facility]1983) 105 70-100 GLUCOSE, FASTING eCW1 ([facility]) 17 7-18 BLOOD UREA NITROGEN eCW1 ([facility]) 112 98-107 CHLORIDE LEVEL eCW1 ([facility]) 144 136-145 SODIUM LEVEL eCW1 ([facility]) 4.8 3.5-5.1 POTASSIUM SERUM eCW1 ([facility]) 13 7-37 AST/SGOT eCW1 ([facility]) 9.5 8.5-10.1 CALCIUM LEVEL eCW1 ([facility]) 28 21-32 CARBON DIOXIDE LEVEL eCW1 ([facility] hospital) 6.5 6.4-8.2 TOTAL PROTEIN eCW1 ([facility]) 0.2 0.2-1.0 BILIRUBIN,TOTAL eCW1 ([facility]) 25 12-78 ALT/SGPT eCW1 ([facility]) 129 45-117 ALKALINE PHOSPHATASE eCW1 ([facility] hospital) 3.9 3.2-5.2 ALBUMIN eCW1 ([facility]) 1.5 1.2-2.2 ALBUMIN/GLOBULIN RATIO eCW1 ([facility]) ID Date Data Source CBC with Differential 09/12/2021 12:00:00 AM EDT eCW1 ([facility]) Name Value Range Interpretation Code Description Data Olga rce(s) Supporting Document(s) 4.78 4.00-5.40 RED BLOOD COUNT eCW1 ([facility]) 5.4 4.0-10.0 WHITE BLOOD COUNT eCW1 ([facility]) 13.9 12.0-15.5 HEMOGLOBIN eCW1 ([facility]) 43.7 36.0-47.0 HEMATOCRIT eCW1 ([facility]) 91.4 80.0-96.0 MEAN CORPUSCULAR VOLUME e CW1 ([facility]) 29.1 27.0-33.0 MEAN CORPUSCULAR HEMOGLOB IN eCW1 ([facility]) 13.2 11.5-14.5 RED CELL DISTRIBUTION WID TH eCW1 ([facility]) 31.8 32.0-36.5 MEAN CORPUSCULAR HGB CONC eCW1 ([facility]) 55.0 36.0-66.0 NEUTROPHILS % eCW1 ([facility]) 269 150-450 PLATELET COUNT, AUTOMATED eCW1 ([facility]) 7.6 2.0-8.0 MONO % eCW1 ([facility]) 3.2 0.0-3.0 EOS % eCW1 ([facility]) 33.4 24.0-44.0 LYMPH % eCW1 ([facility]) 1.8 1.5-5.0 LYMPH # eCW1 ([facility]) 3.0 1.5-8.5 NEUTROPHILS # eCW1 ([facility]) 0.6 0.0-1.0 BASO % eCW1 ([facility]) 0.2 0.0-0.5 EOS # eCW1 ([facility]) 0.4 0.0-0.8 MONO # eCW1 ([facility]) 0.0 0.0-0.2 BASO # eCW1 ([facility]) ID Date Data Source [id number] 02/22/2021 12:15:00 PM EDT [facility] Name Value Range Interpretation Code Description Data Olga rce(s) Supporting Document(s) SARS-CoV-2 (COVID-19) RNA [Presence] in Respiratory specimen by HINA with probe detection Not Detected [facility] This lab was ordered by [facility] and reported by [email or web address]. ID Date Data Source [id number] 09/21/2020 12:30:00 PM EST [facility] Name Value Range Interpretation Code Description Data Olga rce(s) Supporting Document(s) SARS coronavirus 2 RNA [facility] This lab was ordered by [facility] and reported by [email or web address]. ID Date Data Source [id number] 09/13/2020 08:10:00 AM EDT MEDENT ([facility]) Name Value Range Interpretation Code Description Data Olga rce(s) Supporting Document(s) Erythrocyte sedimentation rate by Westergren method 6 mm/hr 0-30 [facility] ([facility]) ID Date Data Source [id number] 09/13/2020 08:10:00 AM EDT MEDENT ([facility]) Name Value Range Interpretation Code Description Data Olga rce(s) Supporting Document(s) Hemoglobin 14.1 g/dL 12.0-15.5 MEDENT ([facility]) White Blood Count 5.1 10 4.0-10.0 MEDENT ([facility] ) Red Blood Count 4.92 10 4.00-5.40 MEDENT ([facility]) Hematocrit 44.4 % 36.0-47.0 MEDENT ([facility] ) Mean Corpuscular Volume 90.2 fl 80.0-96.0 M EDENT ([facility]) Mean Corpuscular Hemoglobin 28.7 pg 27.0-33.0 MEDENT ([facility]) Red Cell Distribution Width 12.7 % 11.5-14.5 MEDENT ([facility]) Mean Corpuscular HGB Conc 31.8 g/dL 32.0-36.5 MEDENT ([facility]) Platelet Count, Automated 264 10 150-450 MEDENT ([facility]) Nucleated Red Blood Cell % 0.0 % 0-0 MED ENT ([facility]) ID Date Data Source [id number] 09/13/2020 08:10:00 AM EDT MEDENT ([facility]) Name Value Range Interpretation Code Description Data Olga rce(s) Supporting Document(s) Creatinine For GFR 0.76 mg/dL 0.55-1.30 MEDENT ([facility]) Blood Urea Nitrogen 14 mg/dL 7-18 MEDENT ([facility]) Glucose, Fasting 105 mg/dL 70-100 MEDENT ([facility]) Sodium Level 142 meq/L 136-145 MEDENT ([facility]) Potassium Serum 4.6 meq/L 3.5-5.1 MEDENT ([facility]) Glomerular Filtration Rate Laboratory test result [facility] ([facility]) <content>Units are mL/min/1.73 m2</content>
<content></content>
<content>Chronic Kidney Disease Staging per NKF:</content>
<content></content>
<content>Stage I & II GFR >=60 Normal to Mildly Decreased</content>
<content>Stage III GFR 30- 59 Moderately Decreased</content>
<content>Stage IV GFR 15-29 Severely Decreased</content>
<content>Stage V GFR <15 Very Little GFR Left</content>
<content>ESRD GFR <15 on BLOOD BANK SPECIALIST</content>
<content></content> Chloride Level 109 meq/L 98-107 [facility] ([facility]) Anion Gap 5 meq/L 8-16 [facility] ([facility]) Carbon Dioxide Level 28 meq/L 21-32 [facility]) Calcium Level 10.1 mg/dL 8.5-10.1 [facility] ([facility]) Ast/Sgot 19 U/L 7-37 [facility] ([facility]) Alt/SGPT 33 U/L 12-78 [facility] ([facility]) Alkaline Phosphatase 121 U/L 45-117 [facility] ([facility]) Bilirubin,Total 0.4 mg/dL 0.2-1.0 MED[facility] ([facility]) Total Protein 7.0 GM/DL 6.4-8.2 [facility] ([facility]) Albumin 4.1 GM/DL 3.2-5.2 [facility] ([facility]) Albumin/Globulin Ratio 1.4 1.2-2.2 [facility] ([facility]) ID Date Data Source [id number] 09/13/2020 08:10:00 AM EDT MEDENT ([facility]) Name Value Range Interpretation Code Description Data Olga rce(s) Supporting Document(s) Prothrombin Time 11.9 s 12.5-14.3 MED[facility] ([facility]) Inr 0.86 [facility] ([facility]) THERAPUTIC HUMAN INR [...] Never Smoker completed Never S donal eCW1 ([facility]) Smoking 06/20/2021 12:00:00 AM EDT Never Smoker completed Never S moker eCW1 ([facility]) Smoking 05/23/2021 12:00:00 AM EDT Never Smoker completed Never S moker eCW1 ([facility]) Smoking 05/23/2021 12:00:00 AM EDT Never Smoker completed Never S moker eCW1 ([facility]) Smoking 12/02/2020 12:00:00 AM EST Never Smoker completed Never S moker eCW1 ([facility]) Smoking 12/02/2020 12:00:00 AM EST Never Smoker completed Never S moker eCW1 ([facility]) Smoking 09/16/2020 12:00:00 AM EDT Never Smoker completed Never S moker eCW1 ([facility]) Smoking 09/16/2020 12:00:00 AM EDT Never Smoker completed Never S moker eCW1 ([facility]) Smoking 09/05/2020 12:00:00 AM EDT Never Smoker completed Never S moker eCW1 ([facility]) Vital Signs ID Date Data Source UNK Name Value Range Interpretation Code Description Data Source(s) Heart rate 77 /min 77 /min eCW1 ([facility]) Respiratory rate 18 /min 18 /min eCW1 ([facility]) Body temperature 97.4 [degF] 97.4 [degF] eCW1 ( [facility]) Body weight 207 [lb_av] 207 [lb_av] eCW1 ([facility]) Body height 63.25 [in_i] 63.25 [in_i] eCW1 ([facility]) Body mass index (BMI) [Ratio] 36.38 kg/m2 36.38 kg/m2 eCW1 ([facility]) Systolic blood pressure 142 mm[Hg] 142 mm[Hg] e CW1 ([facility]) Diastolic blood pressure 84 mm[Hg] 84 mm[Hg] eCW1 ([facility]) Body weight 203 [lb_av] 203 [lb_av] eCW1 ([facility]) Body height 63.25 [in_i] 63.25 [in_i] eCW1 ([facility]) Body mass index (BMI) [Ratio] 35.67 kg/m2 35.67 kg/m2 eCW1 ([facility]) Heart rate 80 /min 80 /min eCW1 ([facility]) Respiratory rate 18 /min 18 /min eCW1 ([facility]) Body temperature 97.3 [degF] 97.3 [degF] eCW1 ( [facility]) Systolic blood pressure 138 mm[Hg] 138 mm[Hg] e CW1 ([facility]) Diastolic blood pressure 76 mm[Hg] 76 mm[Hg] eCW1 ([facility]) Diastolic blood pressure 90 mm[Hg] 90 mm[Hg] eCW1 ([facility]) Body weight 203 [lb_av] 203 [lb_av] eCW1 ([facility]) Body height 63.25 [in_i] 63.25 [in_i] eCW1 ([facility]) Body mass index (BMI) [Ratio] 35.67 kg/m2 35.67 kg/m2 eCW1 ([facility]) Heart rate 77 /min 77 /min eCW1 ([facility]) Respiratory rate 18 /min 18 /min eCW1 ([facility]) Body temperature 96.5 [degF] 96.5 [degF] eCW1 ( [facility]) Systolic blood pressure 170 mm[Hg] 170 mm[Hg] e CW1 ([facility]) Body weight 203 [lb_av] 203 [lb_av] eCW1 ([facility]) Body weight 92.08 kg 92.08 kg eCW1 ([facility]) Body height 63.25 [in_i] 63.25 [in_i] eCW1 ([facility]) Body mass index (BMI) [Ratio] 35.67 kg/m2 35.67 kg/m2 eCW1 ([facility]) Systolic blood pressure 156 mm[Hg] 156 mm[Hg] e CW1 ([facility]) Diastolic blood pressure 81 mm[Hg] 81 mm[Hg] eCW1 ([facility]) Body temperature 96.9 [degF] 96.9 [degF] MEDENT ([facility]) Body weight 200 [lb_av] 200 [lb_av] eCW1 ([facility]) Diastolic blood pressure 78 mm[Hg] 78 mm[Hg] eCW1 ([facility]) Body height 63.25 [in_i] 63.25 [in_i] eCW1 ([facility]) Body mass index (BMI) [Ratio] 35.15 kg/m2 35.15 kg/m2 eCW1 ([facility]) Heart rate 60 /min 60 /min eCW1 ([facility]) Respiratory rate 18 /min 18 /min eCW1 ([facility]) Body temperature 96.9 [degF] 96.9 [degF] eCW1 ( [facility]) Systolic blood pressure 138 mm[Hg] 138 mm[Hg] e CW1 ([facility]) Body weight 202.6 [lb_av] 202.6 [lb_av] eCW1 (Formerly [facility]) Body height 63.25 [in_i] 63.25 [in_i] eCW1 ([facility]) Body mass index (BMI) [Ratio] 35.60 kg/m2 35.60 kg/m2 eCW1 ([facility]) Heart rate 81 /min 81 /min eCW1 ([facility]) Respiratory rate 18 /min 18 /min eCW1 ([facility] [place]) Body temperature 97.8 [degF] 97.8 [degF] eCW1 ( [facility]) Systolic blood pressure 124 mm[Hg] 124 mm[Hg] e CW1 ([facility]) Diastolic blood pressure 80 mm[Hg] 80 mm[Hg] eCW1 ([facility]) Systolic blood pressure 132 mm[Hg] 132 mm[Hg] M EDENT ([facility], [facility]) Diastolic blood pressure 82 mm[Hg] 82 mm[Hg] MEDENT ([facility], [facility]) Heart rate 72 /min 72 /min MEDENT ([facility], [facility]) Respiratory rate 20 /min 20 /min MEDENT ( [facility], [facility]) Oxygen saturation in Arterial blood by Pulse oximetry 98 % 98 % MEDENT ([facility], [facility]) Body temperature 98.4 [degF] 98.4 [degF] MEDENT ([facility], [facility]) Body weight 198.00 [lb_av] 198.00 [lb_av] MEDEN T ([facility], [facility]) Body height 64 [in_i] 64 [in_i] MEDENT ([facility], [facility]) 5'4" Body mass index (BMI) [Ratio] 34.0 kg/m2 34.0 k g/m[facility]) Body temperature 96.3 [degF] 96.3 [degF] MEDENT ([facility] ) Body weight 198.25 [lb_av] 198.25 [lb_av] MEDEN T ([facility] ) Body mass index (BMI) [Ratio] 34.8 kg/m2 34.8 k g/m2 MEDENT ([facility] ) Body height 63.25 [in_i] 63.25 [in_i] MEDENT ([facility] ) 5'3.25"
[2021-09-26 16:42] VITALS: BP 170/99
[2021-09-26] MEDS ORDERED: 3 SEMIS2 XX (18:26)
[2021-09-26] MEDS ORDERED: REGL10TA6 PO (18:27)
[2021-09-26 18:58] VITALS: BP 152/76
--- NOTE | 2021-09-26 19:40 | ECGEPIP ---
[facility] - ED Test Date: 2021-09-26 Pat Name: LOUIE HAUSER Department: Room: - Gender: Female P[employer]eter: EMILIA : 1960 Requested By: Joseph Martini Order Number: [id number] Reading MD: Angela Andrew Measurements Intervals [place] Rate: 59 P: 38 TX: 136 QRS: 16 QRSD: 84 T: 17 QT: 440 QTc: 435 Interpretive Statements Sinus bradycardia with sinus arrhythmia Nonspecific ST abnormality 09/13/[address] T wave changes Electronically Signed on 09-26-2021 19:39:37 EST by Angela Andrew
== END 2021-09-26 19:08 | disposition home or self-care (01) ==
LOC: M ED 14:49
DX: I10 Essential (primary) hypertension (principal); Z88.0 Allergy status to penicillin; Z88.1 Allergy status to other antibiotic agents; Z88.5 Allergy status to narcotic agent; Z88.8 Allergy status to other drugs, medicaments and biological substances
CPT/HCPCS: 70450; 80048; 85025; 87631; 93005; 96374; 96375; 99284; J1885; J2270; J2405; J2765

== ENCOUNTER → 2021-11-21 | Outpatient (REF) ==
[~2021-11-21] MED LIST changes: +3 SEMIS2 XX; +PHEN-935 PO; +REGL10TA6 PO
[2021-11-21 15:57] LABS: RSV AMPLIFICATION NEGATIVE (NEGATIVE)
== END ==
LOC: M EMP 14:33
PROVIDERS: ATTEND Family Medicine
DX: Z11.59 Encounter for screening for other viral diseases (principal)

== ENCOUNTER → 2021-12-14 | Outpatient (REF) | LOC: M LABSMTC 09:14 | PROVIDERS: ATTEND Family Medicine | DX: Z11.52 Encounter for screening for COVID-19 (principal) ==

== ENCOUNTER → 2022-05-23 | Outpatient (CLI) | payer BC | LOC: M RAD 10:59 | PROVIDERS: ATTEND Physician Assistant | DX: R06.2 Wheezing (principal) ==

== ENCOUNTER → 2022-07-19 | Outpatient (CLI) | payer BC | LOC: M CARPUL 13:49 | PROVIDERS: ATTEND Internal Medicine Pulmonary Disease | DX: R05.9 Cough, unspecified (principal) ==

== ENCOUNTER → 2022-07-26 | Outpatient (CLI) | payer BC ==
[~2022-07-26] MED LIST changes: +METHACHOLINE KIT (J7674) INH ONE
== END ==
LOC: M CARPUL 13:59
PROVIDERS: ATTEND Internal Medicine Pulmonary Disease
DX: R05.9 Cough, unspecified (principal)

== ENCOUNTER → 2022-08-31 | Outpatient (REF) | payer BC ==
[~2022-08-31] MED LIST changes: -METHACHOLINE KIT (J7674) INH ONE
== END ==
LOC: M PLALAB 08:29
PROVIDERS: ATTEND Nurse Practitioner Family
DX: Z12.4 Encounter for screening for malignant neoplasm of cervix (principal)

== ENCOUNTER → 2022-08-31 | Outpatient (CLI) | payer BC | LOC: M WHC 07:48 | PROVIDERS: ATTEND Nurse Practitioner Family | DX: Z12.31 Encounter for screening mammogram for malignant neoplasm of breast (principal) ==

== ENCOUNTER → 2022-09-09 | Outpatient (CLI) | payer BC ==
[2022-09-09 09:37] LABS: BASO % 0.5 % (0.0-1.0); EOS # 0.1 10^3/uL (0.0-0.5); EOS % 1.4 % (0.0-3.0); HEMATOCRIT 44.1 % (36.0-47.0); HEMOGLOBIN 13.8 g/dl (12.0-15.5); LYMPH # 2.2 10^3/uL (1.5-5.0); LYMPH % 35.1 % (24.0-44.0); MEAN CORPUSCULAR HEMOGLOBIN 28.3 pg (27.0-33.0); MEAN CORPUSCULAR HGB CONC 31.3 g/dl (32.0-36.5); MEAN CORPUSCULAR VOLUME 90.6 fl (80.0-96.0); MONO # 0.4 10^3/uL (0.0-0.8); MONO % 6.6 % (2.0-8.0); NEUTROPHILS # 3.5 10^3/uL (1.5-8.5); NEUTROPHILS % 56.1 % (36.0-66.0); PLATELET COUNT, AUTOMATED 275 10^3/uL (150-450); RED BLOOD COUNT 4.87 10^6/uL (4.00-5.40); WHITE BLOOD COUNT 6.2 10^3/uL (4.0-10.0)
[2022-09-09 10:20] LABS: HEMOGLOBIN A1c 5.7 %
[2022-09-09 10:23] LABS: ALBUMIN 4.1 GM/DL (3.2-5.2); ALT/SGPT 27 U/L (12-78); BILIRUBIN,TOTAL 0.3 MG/DL (0.2-1.0); BLOOD UREA NITROGEN 22 MG/DL (7-18); CALCIUM LEVEL 9.7 MG/DL (8.5-10.1); CARBON DIOXIDE LEVEL 30 MEQ/L (21-32); CHLORIDE LEVEL 104 MEQ/L (98-107); CHOLESTEROL LEVEL 231 MG/DL (<200); CHOLESTEROL RISK RATIO 3.121 (<5); CREATININE FOR GFR 0.76 MG/DL (0.55-1.30); GLOMERULAR FILTRATION RATE > 60.0 (>51); GLUCOSE, FASTING 120 MG/DL (70-100); HDL CHOLESTEROL 74 MG/DL (>40); LDL CHOLESTEROL 133 MG/DL (<100); NON-HDL-C 157 MG/DL; POTASSIUM SERUM 3.9 MEQ/L (3.5-5.1); SODIUM LEVEL 138 MEQ/L (136-145); TRIGLYCERIDES LEVEL 119 MG/DL (<150)
== END ==
LOC: M LAB 08:40
PROVIDERS: ATTEND Physician Assistant Medical
DX: Z00.00 Encounter for general adult medical examination without abnormal findings (principal); E78.2 Mixed hyperlipidemia; R73.01 Impaired fasting glucose

== ENCOUNTER → 2022-09-26 | Outpatient (REF) ==
[2022-09-26 11:35] LABS: RSV AMPLIFICATION NEGATIVE (NEGATIVE)
== END ==
LOC: M EMP 10:38
PROVIDERS: ATTEND Family Medicine
DX: Z11.52 Encounter for screening for COVID-19 (principal)

== ENCOUNTER → 2022-11-08 | Outpatient (REF) | LOC: M EMP 07:47 | PROVIDERS: ATTEND Family Medicine | DX: Z11.52 Encounter for screening for COVID-19 (principal) ==

== ENCOUNTER → 2022-11-27 | Outpatient (CLI) | payer BC | LOC: M RAD 14:13 | PROVIDERS: ATTEND Physician Assistant Medical | DX: M25.571 Pain in right ankle and joints of right foot (principal); M19.90 Unspecified osteoarthritis, unspecified site ==

== ENCOUNTER → 2022-11-29 | Outpatient (REF) | payer BC ==
[2022-11-29 14:10] LABS: URIC ACID 6.4 MG/DL (3.1-7.8)
[2022-11-29 14:12] LABS: C REACTIVE PROTEIN QUANTITATIV 0.7 MG/DL (<1.0)
== END ==
LOC: M SFHCADAM 09:25
PROVIDERS: ATTEND Physician Assistant Medical
DX: M79.671 Pain in right foot (principal)

== ENCOUNTER → 2023-01-17 | Outpatient (REF) | LOC: M EMP 12:24 | PROVIDERS: ATTEND Family Medicine | DX: Z11.52 Encounter for screening for COVID-19 (principal) ==

== ENCOUNTER → 2023-01-22 | Outpatient (REF) | LOC: M LABSMTC 09:27 | PROVIDERS: ATTEND Family Medicine | DX: Z11.52 Encounter for screening for COVID-19 (principal) ==

== ENCOUNTER → 2023-02-22 | Outpatient (REF) | payer BC | LOC: M LAB REF 19:02 | PROVIDERS: ATTEND Internal Medicine Critical Care Medicine | DX: J45.40 Moderate persistent asthma, uncomplicated (principal) ==

== ENCOUNTER 2023-06-16 18:16 | Emergency (ER) | payer BC ==
[~2023-06-16] VITALS: Ht 162.6 cm; Wt 93.2 kg
[2023-06-16 18:17] VITALS: TEMP 98.1
[2023-06-16 19:13] LABS: BASO % 0.3 % (0.0-1.0); EOS # 0.1 10^3/uL (0.0-0.5); EOS % 1.1 % (0.0-3.0); HEMATOCRIT 45.9 % (36.0-47.0); HEMOGLOBIN 14.9 g/dl (12.0-15.5); LYMPH # 2.1 10^3/uL (1.5-5.0); MEAN CORPUSCULAR HEMOGLOBIN 28.6 pg (27.0-33.0); MEAN CORPUSCULAR HGB CONC 32.5 g/dl (32.0-36.5); MEAN CORPUSCULAR VOLUME 88.1 fl (80.0-96.0); MONO # 0.6 10^3/uL (0.0-0.8); MONO % 6.6 % (2.0-8.0); NEUTROPHILS # 6.6 10^3/uL (1.5-8.5); NEUTROPHILS % 69.7 % (36.0-66.0); PLATELET COUNT, AUTOMATED 312 10^3/uL (150-450); RED BLOOD COUNT 5.21 10^6/uL (4.00-5.40); WHITE BLOOD COUNT 9.4 10^3/uL (4.0-10.0)
[2023-06-16 19:25] LABS: INR 0.87
[2023-06-16 19:26] LABS: PARTIAL THROMBOPLASTIN TIME 28.1 SECONDS (24.8-34.2)
[2023-06-16 19:39] LABS: BLOOD UREA NITROGEN 18 MG/DL (9-23); CALCIUM LEVEL 9.7 MG/DL (8.3-10.6); CARBON DIOXIDE LEVEL 23 MMOL/L (20-31); CHLORIDE LEVEL 110 MMOL/L (98-107); CREATININE FOR GFR 0.73 MG/DL (0.55-1.30); GLOMERULAR FILTRATION RATE > 60.0 (>45); GLUCOSE, FASTING 97 MG/DL (74-106); POTASSIUM SERUM 3.7 MMOL/L (3.5-5.1); SODIUM LEVEL 144 MMOL/L (136-145)
[2023-06-16 19:40] LABS: CPK CREATINE PHOSPHOKINASE 128 U/L (34-145); MB/CK RELATIVE INDEX 0.78 (< OR =4)
[2023-06-16 19:45] VITALS: BP 187/99
[2023-06-16 19:46] VITALS: O2SAT 97
[2023-06-16] MEDS ORDERED: bisoproloL fumarate 5 MG TAB PO ONE (22:00)
[2023-06-16] MEDS ORDERED: HOLTER MONITOR XX (22:01)
[2023-06-16] MEDS ORDERED: BISO5TAB14 PO (22:01)
[2023-06-17] MEDS ORDERED: AMLO1TAB24 PO (19:20)
== END 2023-06-16 22:19 | disposition home or self-care (01) ==
LOC: M ED 18:16
DX: I47.1 Supraventricular tachycardia (principal); I10 Essential (primary) hypertension; Z88.0 Allergy status to penicillin; Z88.1 Allergy status to other antibiotic agents

== ENCOUNTER 2023-06-17 14:15 | Emergency (ER) | payer BC ==
[~2023-06-17] VITALS: Ht 162.6 cm; Wt 98.3 kg
[~2023-06-17 14:15] MED LIST changes: +BISO5TAB14 PO; +HOLTER MONITOR XX
[2023-06-17 16:36] LABS: BLOOD UREA NITROGEN 22 MG/DL (9-23); CALCIUM LEVEL 10.2 MG/DL (8.3-10.6); CARBON DIOXIDE LEVEL 28 MMOL/L (20-31); CHLORIDE LEVEL 107 MMOL/L (98-107); CK-MB VALUE MASS < 1.0 NG/ML (<3.6); CPK CREATINE PHOSPHOKINASE 99 U/L (34-145); CREATININE FOR GFR 0.78 MG/DL (0.55-1.30); GLOMERULAR FILTRATION RATE > 60.0 (>45); GLUCOSE, FASTING 81 MG/DL (74-106); MB/CK RELATIVE INDEX 1.01 (< OR =4); POTASSIUM SERUM 4.1 MMOL/L (3.5-5.1); SODIUM LEVEL 143 MMOL/L (136-145)
[2023-06-17 16:42] LABS: BASO % 0.5 % (0.0-1.0); EOS # 0.1 10^3/uL (0.0-0.5); EOS % 0.9 % (0.0-3.0); HEMATOCRIT 43.5 % (36.0-47.0); HEMOGLOBIN 13.9 g/dl (12.0-15.5); LYMPH # 2.2 10^3/uL (1.5-5.0); MEAN CORPUSCULAR HEMOGLOBIN 29.1 pg (27.0-33.0); MEAN CORPUSCULAR VOLUME 91.2 fl (80.0-96.0); MONO # 0.6 10^3/uL (0.0-0.8); MONO % 7.4 % (2.0-8.0); NEUTROPHILS # 4.6 10^3/uL (1.5-8.5); NEUTROPHILS % 61.9 % (36.0-66.0); PLATELET COUNT, AUTOMATED 308 10^3/uL (150-450); RED BLOOD COUNT 4.77 10^6/uL (4.00-5.40); WHITE BLOOD COUNT 7.5 10^3/uL (4.0-10.0)
[2023-06-17 16:55] LABS: THYROID STIMULATING HORMONE 1.909 uIU/ML (0.55-4.78)
[2023-06-17 16:56] LABS: FREE T4 0.97 NG/DL (0.89-1.76)
[2023-06-17 18:30] LABS: CK-MB VALUE MASS 1.6 NG/ML (<3.6)
[2023-06-17 18:35] LABS: MB/CK RELATIVE INDEX 1.44 (< OR =4)
[2023-06-17] MEDS ORDERED: AMLO1TAB24 PO (19:20)
[2023-06-17 19:27] VITALS: BP 155/74; TEMP 97.8; O2SAT 96
== END 2023-06-17 19:58 | disposition home or self-care (01) ==
LOC: M ED 14:15
DX: I10 Essential (primary) hypertension (principal); R00.1 Bradycardia, unspecified; J45.909 Unspecified asthma, uncomplicated; Z88.1 Allergy status to other antibiotic agents; Z88.5 Allergy status to narcotic agent; Z79.899 Other long term (current) drug therapy

== ENCOUNTER → 2023-06-19 | Outpatient (CLI) | payer BC ==
[~2023-06-19] MED LIST changes: +AMLO1TAB24 PO
== END ==
LOC: M EKG 10:23
PROVIDERS: ATTEND Emergency Medicine
DX: R00.2 Palpitations (principal)

== ENCOUNTER → 2023-10-12 | Outpatient (REF) | payer BC | LOC: M LAB REF 18:07 | PROVIDERS: ATTEND Physician Assistant Medical | DX: B34.9 Viral infection, unspecified (principal) ==

== ENCOUNTER → 2023-10-23 | Outpatient (CLI) | payer BC ==
[2023-10-23 12:27] LABS: BASO % 0.6 % (0.0-1.0); EOS # 0.1 10^3/uL (0.0-0.5); EOS % 1.3 % (0.0-3.0); HEMATOCRIT 43.4 % (36.0-47.0); HEMOGLOBIN 14.1 g/dl (12.0-15.5); LYMPH # 2.2 10^3/uL (1.5-5.0); MEAN CORPUSCULAR HEMOGLOBIN 29.1 pg (27.0-33.0); MEAN CORPUSCULAR HGB CONC 32.5 g/dl (32.0-36.5); MEAN CORPUSCULAR VOLUME 89.5 fl (80.0-96.0); MONO # 0.4 10^3/uL (0.0-0.8); NEUTROPHILS # 4.3 10^3/uL (1.5-8.5); PLATELET COUNT, AUTOMATED 298 10^3/uL (150-450); RED BLOOD COUNT 4.85 10^6/uL (4.00-5.40)
[2023-10-23 12:57] LABS: ALBUMIN 4.3 G/DL (3.2-5.2); ALKALINE PHOSPHATASE 128 U/L (46-116); ALT/SGPT 26 U/L (7.0-40); AST/SGOT 19 U/L (<34); BILIRUBIN,TOTAL 0.4 MG/DL (0.3-1.2); BLOOD UREA NITROGEN 12 MG/DL (9-23); CALCIUM LEVEL 10.4 MG/DL (8.3-10.6); CARBON DIOXIDE LEVEL 26 MMOL/L (20-31); CHLORIDE LEVEL 107 MMOL/L (98-107); CHOLESTEROL LEVEL 226 MG/DL (<200); CHOLESTEROL RISK RATIO 2.92 (<5); CREATININE FOR GFR 0.62 MG/DL (0.55-1.30); GLOMERULAR FILTRATION RATE > 60.0 (>45); GLUCOSE, FASTING 97 MG/DL (74-106); HDL CHOLESTEROL 77.3 MG/DL (>40); LDL CHOLESTEROL 114.7 MG/DL (<100); NON-HDL-C 148.7 MG/DL; POTASSIUM SERUM 4.4 MMOL/L (3.5-5.1); SODIUM LEVEL 142 MMOL/L (136-145); TOTAL PROTEIN 6.8 G/DL (5.7-8.2); TRIGLYCERIDES LEVEL 170 MG/DL (<150)
[2023-10-23 12:59] LABS: HEMOGLOBIN A1c 5.5 % (4.0-6.0)
== END ==
LOC: M LAB 11:59
PROVIDERS: ATTEND Physician Assistant Medical
DX: I10 Essential (primary) hypertension (principal)

== ENCOUNTER → 2023-10-24 | Outpatient (CLI) | payer BC ==
[~2023-10-24] MED LIST changes: +ISOVUE-370 76% 100ML VIAL As Ordered ONE
== END ==
LOC: M RAD 09:32
PROVIDERS: ATTEND Physician Assistant Medical
DX: R22.0 Localized swelling, mass and lump, head (principal); R59.1 Generalized enlarged lymph nodes

== ENCOUNTER → 2023-11-05 | Outpatient (CLI) | payer BC ==
[~2023-11-05] MED LIST changes: -ISOVUE-370 76% 100ML VIAL As Ordered ONE
== END ==
LOC: M RAD 11:37
PROVIDERS: ATTEND Physician Assistant Medical
DX: E04.1 Nontoxic single thyroid nodule (principal)

== ENCOUNTER → 2023-11-08 | Outpatient (REF) | LOC: M EMP 09:44 | PROVIDERS: ATTEND Family Medicine | DX: Z11.52 Encounter for screening for COVID-19 (principal) ==

== ENCOUNTER → 2023-12-20 | Outpatient (CLI) | payer BC | LOC: M WHC 14:20 | PROVIDERS: ATTEND Nurse Practitioner Family | DX: Z12.31 Encounter for screening mammogram for malignant neoplasm of breast (principal) ==

== ENCOUNTER → 2024-03-12 | Outpatient (REF) | LOC: M EMP 14:11 | PROVIDERS: ATTEND Family Medicine | DX: Z11.52 Encounter for screening for COVID-19 (principal) ==

== ENCOUNTER → 2024-04-23 | Outpatient (CLI) | payer BC | LOC: M RAD 15:15 | PROVIDERS: ATTEND Internal Medicine Pulmonary Disease | DX: J45.40 Moderate persistent asthma, uncomplicated (principal) ==

== ENCOUNTER 2024-07-24 09:29 | Day surgery (SDC) | payer BC ==
[~2024-07-24] VITALS: Ht 162.6 cm; Wt 89.9 kg
[~2024-07-24 09:29] MED LIST changes: +ALBU8.5H INH; +ALLE180T33 PO; +BREO1INH3 INH; +CALC500T52 PO; +D31000CA4 PO; +LEXA1TAB PO; +LISI20TA33 PO; +MELO15TA28 PO; +MONT10TA97 PO; +NS 1,000 ML IV ONE; +PRED10TA2 PO; +THERTAB52 PO
[2024-07-24] MEDS ORDERED: propofoL 200 MG/20 ML VIAL As Ordered ONE (11:07)
[2024-07-24] MEDS ORDERED: LIDOCAINE 2% 100MG/5ML SDV (FOR ANES.) As Ordered ONE (11:07)
[2024-07-24] MEDS ORDERED: LABETALOL 100MG/20ML VIAL As Ordered ONE (11:17)
[2024-07-24 11:25] VITALS: TEMP 98.8
[2024-07-24] MEDS ORDERED: ONDANSETRON 4MG 2ML VIAL As Ordered ONE (11:44)
[2024-07-24 12:04] VITALS: BP 162/76; O2SAT 96
== END 2024-07-24 12:11 | disposition home or self-care (01) ==
LOC: M OPP 09:29
PROVIDERS: ATTEND Surgery
DX: Z12.11 Encounter for screening for malignant neoplasm of colon (principal); K64.0 First degree hemorrhoids; K57.30 Diverticulosis of large intestine without perforation or abscess without bleeding; Z79.1 Long term (current) use of non-steroidal anti-inflammatories (NSAID); Z79.51 Long term (current) use of inhaled steroids; Z79.899 Other long term (current) drug therapy; Z88.1 Allergy status to other antibiotic agents; Z88.5 Allergy status to narcotic agent
CPT/HCPCS: 45378; J1920; J2405

== ENCOUNTER → 2024-10-19 | Outpatient (CLI) | payer BC ==
[~2024-10-19] MED LIST changes: -3 SEMIS2 XX; +BLOO-175 XX; -NS 1,000 ML IV ONE
[2024-10-19 09:43] LABS: ALBUMIN 4.1 G/DL (3.2-5.2); ALKALINE PHOSPHATASE 128 U/L (35-104); ALT/SGPT 28 U/L (7.0-40); AST/SGOT 17 U/L (<34); BILIRUBIN,TOTAL 0.5 MG/DL (0.3-1.2); BLOOD UREA NITROGEN 17 MG/DL (9-23); CALCIUM LEVEL 10.9 MG/DL (8.3-10.6); CARBON DIOXIDE LEVEL 27 MMOL/L (20-31); CHLORIDE LEVEL 106 MMOL/L (98-107); CHOLESTEROL LEVEL 280 MG/DL (<200); CHOLESTEROL RISK RATIO 3.23 (<5); CREATININE FOR GFR 0.69 MG/DL (0.55-1.30); GLOMERULAR FILTRATION RATE > 60.0 (>45); GLUCOSE, FASTING 99 MG/DL (74-106); HDL CHOLESTEROL 86.6 MG/DL (>40); LDL CHOLESTEROL 147.8 MG/DL (<100); NON-HDL-C 193.4 MG/DL; POTASSIUM SERUM 4.4 MMOL/L (3.5-5.1); SODIUM LEVEL 140 MMOL/L (136-145); TOTAL PROTEIN 7.2 G/DL (5.7-8.2); TRIGLYCERIDES LEVEL 228 MG/DL (<150)
[2024-10-19 09:44] LABS: THYROID STIMULATING HORMONE 2.051 uIU/ML (0.55-4.78); TOTAL 25(OH) VITAMIN D 60.4 NG/ML (20.0-100.0)
[2024-10-19 09:45] LABS: FREE T4 0.96 NG/DL (0.89-1.76)
== END ==
LOC: M LAB 08:17
PROVIDERS: ATTEND Physician Assistant Medical
DX: I10 Essential (primary) hypertension (principal); E78.2 Mixed hyperlipidemia

== ENCOUNTER → 2024-10-20 | Outpatient (REF) | payer BC ==
[2024-10-21 13:26] LABS: APPEARANCE, URINE HAZY (CLEAR); BACTERIA, URINE AUTO 1+ (NEGATIVE); BILIRUBIN, URINE AUTO NEGATIVE (NEGATIVE); BLOOD, URINE BLOOD NEGATIVE (NEGATIVE); COLOR, URINE YELLOW (YELLOW); GLUCOSE, URINE (UA) AUTO NEGATIVE (NEGATIVE); KETONE, URINE AUTO NEGATIVE (NEGATIVE); LEUKOCYTE ESTERASE, URINE AUTO 1+ (NEGATIVE); MUCUS, URINE SMALL (NEGATIVE); NITRITE, URINE AUTO NEGATIVE (NEGATIVE); PROTEIN, URINE AUTO NEGATIVE (NEGATIVE); RBC, URINE AUTO 0 /HPF (0-3); SPECIFIC GRAVITY URINE AUTO 1.012 (1.002-1.035); SQUAMOUS EPITHELIAL CELL UR AU 0 /HPF (0-6); UROBILINOGEN, URINE AUTO 0.2 mg/dL (0.0-2.0); WBC, URINE AUTO 2 /HPF (0-3)
== END ==
LOC: M SFHCADAM 12:37
PROVIDERS: ATTEND Physician Assistant Medical
DX: N39.46 Mixed incontinence (principal)

== ENCOUNTER → 2024-10-21 | Outpatient (CLI) | payer BC | LOC: M RAD 16:20 | PROVIDERS: ATTEND Physician Assistant Medical | DX: M19.011 Primary osteoarthritis, right shoulder (principal) ==

== ENCOUNTER → 2024-10-30 | Outpatient (CLI) | payer BC ==
[2024-10-30 10:44] LABS: BLOOD UREA NITROGEN 19 MG/DL (9-23); CARBON DIOXIDE LEVEL 28 MMOL/L (20-31); CHLORIDE LEVEL 107 MMOL/L (98-107); GLOMERULAR FILTRATION RATE > 60.0 (>45); GLUCOSE, FASTING 104 MG/DL (74-106); POTASSIUM SERUM 4.7 MMOL/L (3.5-5.1); SODIUM LEVEL 142 MMOL/L (136-145)
== END ==
LOC: M LAB 09:11
PROVIDERS: ATTEND Physician Assistant Medical
DX: E83.52 Hypercalcemia (principal)

== ENCOUNTER 2024-11-16 10:45 | Outpatient (RCR) | payer BC | END 2024-11-17 | LOC: M PT 10:45 | PROVIDERS: ATTEND Family Medicine | DX: M25.511 Pain in right shoulder (principal) ==

== ENCOUNTER → 2024-11-20 | Outpatient (CLI) | payer BC ==
[2024-11-20 08:42] LABS: IONIZED CALCIUM 4.9 MG/DL (4.5-5.3)
[2024-11-20 09:12] LABS: PTH INTACT 50.5 PG/ML (18.5-88.0)
== END ==
LOC: M LAB 08:14
PROVIDERS: ATTEND Physician Assistant Medical
DX: E83.52 Hypercalcemia (principal)

== ENCOUNTER → 2024-11-23 | Outpatient (CLI) | payer BC | LOC: M RAD 14:07 | PROVIDERS: ATTEND Physician Assistant Medical | DX: E04.1 Nontoxic single thyroid nodule (principal) ==

== ENCOUNTER → 2024-12-28 | Outpatient (REF) | payer BC | LOC: M SFHCPLAZ 16:59 | PROVIDERS: ATTEND Student in an Organized Health Care Education/Training Program | DX: J06.9 Acute upper respiratory infection, unspecified (principal) ==

== ENCOUNTER → 2025-06-15 | Outpatient (REF) | payer BC | LOC: M SFHCADAM 10:04 | PROVIDERS: ATTEND Physician Assistant Medical | DX: R19.7 Diarrhea, unspecified (principal) ==

== ENCOUNTER → 2025-06-24 | Outpatient (CLI) | payer BC | LOC: M WHC 11:43 | PROVIDERS: ATTEND Nurse Practitioner Family | DX: Z12.31 Encounter for screening mammogram for malignant neoplasm of breast (principal) ==

== ENCOUNTER → 2025-06-24 | Outpatient (REF) | payer BC ==
[2025-06-26 12:27] LABS: HPV APTIMA Not Detected (Not Detected)
== END ==
LOC: M SFHCWAGY 17:26
PROVIDERS: ATTEND Nurse Practitioner Family
DX: Z12.4 Encounter for screening for malignant neoplasm of cervix (principal)
CPT/HCPCS: 87624; G0123

== ENCOUNTER → 2025-07-30 | Outpatient (CLI) | payer BC ==
[~2025-07-30] MED LIST changes: -BLOO-175 XX; +BLOO-327 XX
[2025-07-30 09:54] LABS: BASO # 0.0 10^3/uL (0.0-0.2); BASO % 0.5 % (0.0-1.0); EOS # 0.1 10^3/uL (0.0-0.5); EOS % 1.6 % (0.0-3.0); LYMPH # 1.7 10^3/uL (1.5-5.0); LYMPH % 29.9 % (24.0-44.0); MONO # 0.4 10^3/uL (0.0-0.8); MONO % 6.8 % (2.0-8.0); NEUTROPHILS # 3.4 10^3/uL (1.5-8.5); NEUTROPHILS % 61.0 % (36.0-66.0); PLATELET COUNT, AUTOMATED 280 10^3/uL (150-450)
[2025-07-30 10:02] LABS: ERYTHROCYTE SEDIMENTATION RATE 19 mm/hr (0-30)
[2025-07-30 10:27] LABS: C REACTIVE PROTEIN QUANTITATIV 0.70 MG/DL (<1.0)
[2025-07-30 10:28] LABS: ALT/SGPT 35 U/L (7.0-40); AST/SGOT 23 U/L (<34); CALCIUM LEVEL 9.9 MG/DL (8.3-10.6); CARBON DIOXIDE LEVEL 28 MMOL/L (20-31); CHLORIDE LEVEL 106 MMOL/L (98-107); CHOLESTEROL LEVEL 259 MG/DL (<200); CHOLESTEROL RISK RATIO 3.29 (<5); CREATININE FOR GFR 0.63 MG/DL (0.55-1.30); GLOMERULAR FILTRATION RATE > 90.0 (>45); LDL CHOLESTEROL 160.2 MG/DL (<100); NON-HDL-C 180.4 MG/DL; POTASSIUM SERUM 4.9 MMOL/L (3.5-5.1); SODIUM LEVEL 143 MMOL/L (136-145); TRIGLYCERIDES LEVEL 101 MG/DL (<150)
[2025-07-30 10:33] LABS: TOTAL 25(OH) VITAMIN D 48.6 NG/ML (20.0-100.0)
[2025-07-30 10:34] LABS: FREE T4 1.03 NG/DL (0.89-1.76)
[2025-07-30 12:42] LABS: DRVV SCREEN 33.6 SECONDS
[2025-07-30 12:44] LABS: PTT LUPUS TYPE ANTICOAG SCREEN 0.85 (0-1.20)
== END ==
LOC: M RAD 07:47
PROVIDERS: ATTEND Physician Assistant Medical
DX: M79.644 Pain in right finger(s) (principal); M25.562 Pain in left knee; M79.645 Pain in left finger(s); E78.2 Mixed hyperlipidemia; I10 Essential (primary) hypertension; F41.1 Generalized anxiety disorder; F32.0 Major depressive disorder, single episode, mild; E04.1 Nontoxic single thyroid nodule; J45.40 Moderate persistent asthma, uncomplicated

== ENCOUNTER → 2025-08-16 | Outpatient (CLI) | payer BC | LOC: M SOG 07:25 | PROVIDERS: ATTEND Neuromusculoskeletal Medicine, Sports Medicine | DX: M25.561 Pain in right knee (principal) ==

== ENCOUNTER → 2025-09-24 | Outpatient (CLI) | payer BC | LOC: M PLAIMG 10:49 | PROVIDERS: ATTEND Otolaryngology | DX: K11.23 Chronic sialoadenitis (principal); M26.643 Arthritis of bilateral temporomandibular joint; I65.21 Occlusion and stenosis of right carotid artery ==

== ENCOUNTER → 2025-11-01 | Outpatient (CLI) | payer BC | LOC: M RAD 06:39 | PROVIDERS: ATTEND Physician Assistant Medical | DX: I65.21 Occlusion and stenosis of right carotid artery (principal) ==